=== PATIENT | female | born 1935 | race Caucasian/White ===

== ENCOUNTER 2020-02-18 10:10 | Day surgery (SDC) | payer MEDICARE ==
[2020-02-17 09:10] VITALS: BMI 29.2
[2020-02-18 11:19] VITALS: RESP 16; TEMP 98.4
[2020-02-18] MEDS: LACTATED RINGERS 1,000 ML IV SCH ×2 (11:19→11:31)
[2020-02-18] MEDS ORDERED: PROPOFOL 10 MG/ML 20 ML VIAL IV ONE (11:36)
--- NOTE | 2020-02-18 11:53 | P.PCN ---
Date of Procedure: 02/18/20 Procedure(s) Performed: BRIEF HISTORY: Patient is a 84-year-old pleasant white female scheduled for an elective colonoscopy as a part of evaluation of change in bowel habits with alternating diarrhea constipation for the last several months duration. PROCEDURE PERFORMED: Colonoscopy. PREOPERATIVE DIAGNOSIS: Change in bowel habits. IV sedation per Anesthesia. PROCEDURE: After informed consent was obtained, the patient, was brought into the endoscopy unit. IV sedation was administered by Anesthesia under continuous monitoring. Digital rectal examination was normal. Initially the Olympus CF-160 flexible video colonoscope was then inserted in the rectum, gradually advanced into the right colon without any difficulty. Careful examination was performed. Evidence of ileocolonic anastomosis seen and appeared normal. Mucosa of the ascending colon, transverse colon, descending colon, sigmoid colon, and rectum appeared normal. Evidence of sigmoid resection located at 20 cm from the anal warts anastomosis appeared normal. Retroflexion was performed in the rectum and no lesions were seen. The patient tolerated the procedure well. IMPRESSION: Normal-appearing colon from rectum to right colon with no evidence of colitis or colorectal neoplasia. Normal-appearing colic anastomosis RECOMMENDATIONS: Findings of this examination were discussed with the patient as well as a family.. She was advised to continue with a high-fiber diet and fiber supplements a regular basis. She'll be seen in office in 3-4 weeks
[2020-02-18 12:09] VITALS: BP 156/82; PULSE 78
== END 2020-02-18 12:42 | disposition home or self-care (01) ==
LOC: ORWHC2ENDO 10:10
PROVIDERS: ATTEND Internal Medicine Gastroenterology
DX: Z98.0 Intestinal bypass and anastomosis status (principal); A63.0 Anogenital (venereal) warts; R19.4 Change in bowel habit; E78.5 Hyperlipidemia, unspecified; M19.90 Unspecified osteoarthritis, unspecified site; Z90.49 Acquired absence of other specified parts of digestive tract; Z91.02 Food additives allergy status; Z88.5 Allergy status to narcotic agent
CPT/HCPCS: 45378; J2704

== ENCOUNTER → 2022-03-15 | Outpatient (CLI) | payer MEDICARE ==
--- NOTE | 2022-03-15 11:22 | CT ---
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 Back pain following f all TECHNIQUE: Contiguous axial scanning of the thoracic spine without IV contrast. Coronal and sagittal reconstructions performed. CT DLP: 1044 mGycm Automated exposure control for dose reduction was used. FINDINGS: There are diffuse interstitial changes and underlying emphysematous change in the lungs. Somewhat mor e patchy interstitial change within the right upper lobe. There is a 5 mm anteromedial right upper lo be pulmonary nodule on axial image 31. Numerous parapelvic cysts within the kidneys. Additional lateral right renal cyst measuring 4.3 cm. T iny hiatal hernia. There is an accentuated upper to mid thoracic kyphosis. DISH involving T3-T9 levels. Unable to identify a discrete fracture. There is diffuse osteopenia. Vertebral body heights are prese rved. Degenerative grade 1 anterolisthesis T2-T3. Otherwise, remaining alignment is maintained. Scattered facet arthropathy. On the left, this continues to variable moderate neuroforaminal stenoses in the upper thoracic spine. At T11-T12, there is a right paracentral disc osteophyte complex encroaching onto the ventral thecal sac without significant spinal canal stenosis. IMPRESSION: 1. DISH FROM T3-T9 LEVELS WITH A FIXED, ACCENTUATED THORACIC KYPHOSIS. NO DISCRETE FRACTURE IS IDENTI FIED. IF PERSISTENT CONCERN, CONSIDER MRI WITH THE ADDITION OF SAGITTAL STIR IMAGING. 2. 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 NO OTHER MALALIGNMENT IS SEEN. 3. SCATTERED FACET ARTHROPATHY. VARIABLE MODERATE NEURAL FORAMINAL STENOSES UPPER THORACIC SPINE. 4. INTERSTITIAL LUNG DISEASE AND COPD. SUSPECT SOME UNDERLYING FIBROSIS. MORE PATCHY CHANGES IN THE R IGHT UPPER LOBE. CORRELATE TO EXCLUDE ACUTE INFECTIOUS OR INFLAMMATORY ETIOLOGY.
== END | disposition home or self-care (01) ==
LOC: RADCTMAIN 09:20
PROVIDERS: ATTEND Family Medicine
DX: M51.34 Other intervertebral disc degeneration, thoracic region (principal); M47.814 Spondylosis without myelopathy or radiculopathy, thoracic region; J84.9 Interstitial pulmonary disease, unspecified; J44.9 Chronic obstructive pulmonary disease, unspecified; M99.72 Connective tissue and disc stenosis of intervertebral foramina of thoracic region; M48.04 Spinal stenosis, thoracic region; M43.14 Spondylolisthesis, thoracic region
CPT/HCPCS: 72128

== ENCOUNTER → 2023-01-02 | Outpatient (CLI) | payer MEDICARE ==
--- NOTE | 2023-01-02 21:53 | CA ---
Transthoracic Echo Report Name: Salina Malone Age: 87 Gender: F : 1935 Exam Date: 01/02/2023 09:05 Exam Location: [facility] Ht (in): 63 Wt (lb): 173 Ordering Physician: Jack Good MD Attending/Referring Phys: Agricultural Services Director Sherron Guan [facility] Procedure CPT: Indications: Z01.818 pre op Cardiac Hx: Technical Quality: Technically difficult study Contrast 1: Total Dose (mL): Contrast 2: Total Dose (mL): MEASUREMENTS (Male / Female) Normal Values 2D ECHO LV Diastolic Diameter PLAX 3.9 cm 4.2 - 5.9 / 3.9 - 5.3 cm LV Systolic Diameter PLAX 2.5 cm IVS Diastolic Thickness 1.1 cm 0.6 - 1.0 / 0.6 - 0.9 cm LVPW Diastolic Thickness 1.1 cm 0.6 - 1.0 / 0.6 - 0.9 cm LV Relative Wall Thickness 0.6 LVOT Diameter 2.0 cm LA Volume 29.4 cm??? 18 - 58 / 22 - 52 cm??? LA Volume Index 15.5 cm???/m??? 16 - 28 cm???/m??? Ascending Aorta Diameter 3.7 cm M-MODE Aortic Root Diameter MM 2.7 cm LA Systolic Diameter MM 3.2 cm LA Ao Ratio MM 1.2 AV Cusp Separation MM 1.4 cm DOPPLER AV Peak Velocity 153.9 cm/s AV Peak Gradient 9.5 mmHg AV Mean Velocity 111.6 cm/s AV Mean Gradient 5.5 mmHg AV Velocity Time Integral 30.4 cm LVOT Peak Velocity 102.7 cm/s LVOT Peak Gradient 4.2 mmHg LVOT Velocity Time Integral 23.4 cm LVOT Stroke Volume 71.2 cm??? LVOT Stroke Volume Index 39.1 ml/m??? LVOT Cardiac Index 3191.7 cm???/min???m??? AV Area Cont Eq vti 2.3 cm??? AV Area Cont Eq pk 2.0 cm??? MV Area PHT 3.5 cm??? Mitral E Point Velocity 59.4 cm/s Mitral A Point Velocity 112.2 cm/s Mitral E to A Ratio 0.5 MV Deceleration Time 214.5 ms LV E' Lateral Velocity 5.6 cm/s Mitral E to LV E' Lateral Ratio 10.6 LV E' Septal Velocity 7.2 cm/s Mitral E to LV E' Septal Ratio 8.3 TR Peak Velocity 198.3 cm/s TR Peak Gradient 15.7 mmHg Right Atrial Pressure 3.0 mmHg Pulmonary Artery Systolic Pressu 18.7 mmHg Right Ventricular Systolic Press 18.7 mmHg FINDINGS Left Ventricle Moderate increased left ventricular wall thickness. Left ventricular cavity size normal. Normal left ventricular systolic function with no obvious regional wall motion abnormalities. Left ventricular ejection fraction is estimated at 60-65%. Right Ventricle Right ventricle not well visualized. Right Atrium Right atrium not well visualized. Left Atrium Normal left atrial size. Mitral Valve Mitral valve thickened. Mitral annular calcification. Calcific thickening of posterior mitral valve leaflet. Aortic Valve Trileaflet aortic valve. Aortic valve sclerosis. No aortic regurgitation. Tricuspid Valve Structurally normal tricuspid valve. Trace tricuspid regurgitation. Pulmonic Valve Structurally normal pulmonic valve. Mild pulmonic regurgitation. Pericardium No pericardial effusion. Echo free space anterior to the right ventricle likely represents a fat pad. Aorta Normal size aortic root and upper normal proximal ascending aorta. CONCLUSIONS Technically difficult study. Left ventricular ejection fraction is estimated at 60-65%. Moderate LVH Global longitudinal stain estimated at -13.5% (Normal -20%) Bull's-eye strain pattern, consider infiltrative disease like amyloid evaluation No obvious regional wall motion abnormalities. No significant valvular dysfunction Previewed by: Dr Colt Bliss (Electronically Signed) Final Date: 02 January 2023 21:52
== END | disposition home or self-care (01) ==
LOC: RADECHMAIN 08:54
PROVIDERS: ATTEND Internal Medicine Hematology & Oncology
DX: Z01.818 Encounter for other preprocedural examination (principal); C83.31 Diffuse large B-cell lymphoma, lymph nodes of head, face, and neck; Z71.3 Dietary counseling and surveillance; Z85.3 Personal history of malignant neoplasm of breast
CPT/HCPCS: 93306

== ENCOUNTER 2023-01-10 10:26 | Day surgery (SDC) | payer MEDICARE ==
[2023-01-09 11:05] VITALS: BMI 30.2
[~2023-01-10 10:26] MED LIST: ACETAMINOPHEN TAB 500 MG TAB PO PRN; HEPARIN SODIUM,PORCINE/PF 5,000 UNIT/0.5 ML SYRINGE SQ PRN; LACTATED RINGERS 1,000 ML IV SCH; LIDOCAINE 1% (10MG/ML) FOR IV START INTRADERMA PRN; ONDANSETRON 4 MG/2 ML VIAL IVP ONE; Pre Op ABX Message 1 EACH MISC MISCELLANE ONE; fentaNYL (PF) 50 MCG/ML 2 ML AMP IV PRN
--- NOTE | 2023-01-10 11:37 | P.GSHP ---
History of Present Illness H&P Date: 01/10/23 Chief Complaint: Lymphoma This 87-year-old female who was previously diagnosed lymphoma. Patient presents today for Port-A-Cath placement. Past Medical History Past Medical History: Cancer, Hyperlipidemia, Osteoarthritis (OA) Additional Past Medical History / Comment(s): lymphoma dx Nov 2022, hx BREAST CA. >40 yrs. ago, DIVERTICULITIS/POLYPS. TAKES NOT MEDS FOR HYPERLIPIDS. History of Any Multi-Drug Resistant Organisms: None Reported Past Surgical History: Bowel Resection, Hysterectomy, Tonsillectomy Additional Past Surgical History / Comment(s): BOW. RESECTION (09/24/2013) IN [place]. BILATERAL MASTECTOMY (1978). [place]. CATARACTS,breast bx,left rib removed Past Anesthesia/Blood Transfusion Reactions: No Reported Reaction Additional Past Anesthesia/Blood Transfusion Reaction / Comment(s): nightmares coming out of anesthesia Smoking Status: Never smoker - Past Family History Father Additional Family Medical History / Comment(s): AORTIC ANEURYSM. Mother Family Medical History: Cancer, Myocardial Infarction (MT) Additional Family Medical History / Comment(s): COLON. Sister(s) Family Medical History: Cancer Additional Family Medical History / Comment(s): BREAST. Medications and Allergies Home Medications Medication Instructions Recorded Confirmed Type No Known Home Medications 01/09/23 01/09/23 History Allergies Allergy/AdvReac Type Severity Reaction Status Date / Time adhesive Allergy Rash/Hives Verified 01/10/23 11:05 codeine Allergy Hallucinati Verified 01/10/23 11:05 ons monosodium glutamate Allergy Diarrhea Verified 01/10/23 11:05 Surgical - Exam Vital Signs Temp Pulse Resp BP Pulse Ox 97.9 F 94 20 214/97 96 01/10/23 10:52 01/10/23 10:52 01/10/23 10:52 01/10/23 10:52 01/10/23 10:52 - General well developed, well nourished, no distress - Eyes PERRL - ENT normal pinna - Neck no masses - Respiratory normal expansion - Cardiovascular Rhythm: regular - Abdomen Abdomen: soft, non tender Assessment and Plan Assessment: History of lymphoma. We'll perform Port-A-Cath placement.
[2023-01-10] MEDS ORDERED: ceFAZolin 1,000 MG VIAL ONE (11:57)
[2023-01-10] MEDS ORDERED: LIDOCAINE 1% INJ 10MG/ML (20 ML MDV) ONE (11:57)
[2023-01-10] MEDS ORDERED: PROPOFOL 10 MG/ML 20 ML VIAL IV ONE (11:57)
[2023-01-10] MEDS ORDERED: LABETALOL 5 MG/ML VIAL MDV ONE (11:57)
[2023-01-10] MEDS ORDERED: PHENYLEPHRINE-0.9% NACL SYG 1,000 MCG/10 ML SYRINGE ONE (11:57)
[2023-01-10] MEDS ORDERED: fentaNYL (PF) 50 MCG/ML 2 ML AMP ONE (11:57)
[2023-01-10] MEDS ORDERED: SODIUM CHLORIDE 0.9% 100 ML BAG ONE (11:57)
[2023-01-10] MEDS ORDERED: SODIUM CHLORIDE 0.9% 50 ML with ceFAZolin 2 GM IV ONE ×2 (12:20)
[2023-01-10] MEDS ORDERED: HEPARIN SODIUM,PORCINE 100 UNIT/ML 5 ML VIAL IV ONE (12:28)
[2023-01-10] MEDS ORDERED: LIDOCAINE 0.5%-EPI 1:200,000 50 ML VIAL SQ ONE ×2 (12:29)
--- NOTE | 2023-01-10 12:40 | P.OP ---
Date of Procedure: 01/10/23 Preoperative Diagnosis: Lymphoma Postoperative Diagnosis: Lymphoma Procedure(s) Performed: Right subclavian Port-A-Cath Anesthesia: MATILDE Surgeon: Giorgio Arias Pathology: none sent Condition: stable Disposition: PACU Description of Procedure: The patient was placed on the operating table in the supine position. The patient received IV sedation. The patient's chest was prepped and draped in the usual sterile fashion. A roll had been placed between the shoulder blades in a longitudinal fashion. After prepping and draping the skin was anesthetized 1% local Xylocaine. And then using the Seldinger technique the subclavian vein was cannulated. A wire was placed into the vein and fluoroscopy position the wire at the atrial caval junction. Next the dilator sheath was placed over top the wire and the wire was withdrawn. The catheter was positioned at the atriocaval position. The catheter was placed through the sheath after the dilator was withdrawn. The sheath was then withdrawn. Position of the catheter was confirmed with fluoroscopy. The Port-A-Cath was connected to the catheter. The Port-A-Cath was flushed with saline and then heparinized saline. The skin was closed interrupted 3-0 Monocryl suture. Dermabond was applied. Patient tolerated procedure well and was sent to recovery room stable condition.
[2023-01-10 13:00] VITALS: TEMP 97
[2023-01-10] MEDS ORDERED: LABETALOL SYRINGE 5 MG/ML (4 ML SYR) IVP ONE (13:08)
--- NOTE | 2023-01-10 13:20 | XR ---
EXAMINATION TYPE: XR chest 1V portable DATE OF EXAM: 01/10/2023 COMPARISON: NONE HISTORY: Port-A-Cath TECHNIQUE: Single frontal view of the chest is obtained. FINDINGS: There is no focal air space opacity, pleural effusion, or pneumothorax seen. The cardiac silhouette size is within normal limits. The osseous structures are intact. Port-A-Cath is seen wit h tip overlying the SVC. Diffuse osteopenia. IMPRESSION: 1. Port-A-Cath in good position with no sizable pneumothorax.
--- NOTE | 2023-01-10 13:22 | FL ---
EXAMINATION TYPE: FL guided central line placemt HISTORY: Fluoroscopy time Impression: 1. Fluoroscopy support provided to the referring physician. DAP as [phone].
[2023-01-10] MEDS ORDERED: hydrALAZINE HCL 20 MG/ML 1 ML VIAL IVP ONE (13:37)
[2023-01-10 14:27] VITALS: BP 130/61; PULSE 93; RESP 16
== END 2023-01-10 14:50 | disposition home or self-care (01) ==
LOC: OR 10:26
PROVIDERS: ATTEND Surgery
DX: C85.90 Non-Hodgkin lymphoma, unspecified, unspecified site (principal); E78.5 Hyperlipidemia, unspecified; M19.90 Unspecified osteoarthritis, unspecified site; Z90.13 Acquired absence of bilateral breasts and nipples; Z85.3 Personal history of malignant neoplasm of breast; Z82.49 Family history of ischemic heart disease and other diseases of the circulatory system; Z45.2 Encounter for adjustment and management of vascular access device; Z88.5 Allergy status to narcotic agent; Z91.048 Other nonmedicinal substance allergy status
CPT/HCPCS: 36561; 77001; 71045; C1788; J0360; J1642; J0690 ×2; J2405; J2001; J3010; J2704; J1644; J2371; J1920 ×2

== ENCOUNTER 2023-02-11 14:27 | Observation (INO) | payer MEDICARE ==
[2023-02-11] MEDS ORDERED: ACETAMINOPHEN TAB 500 MG TAB PO STA (15:02)
[2023-02-11] MEDS ORDERED: SODIUM CHLORIDE 0.9% 1,000 ML IV STA ×2 (15:02→20:17)
--- NOTE | 2023-02-11 15:31 | XR ---
EXAMINATION TYPE: XR chest 2V DATE OF EXAM: 02/11/2023 3:23 PM CLINICAL INDICATION:Female, 87 years old with history of Weakness; [facility] COMPARISON: Chest radiograph 01/10/2023. TECHNIQUE: XR chest 2V Frontal and lateral views of the chest. FINDINGS: Lungs/Pleura: There is no evidence of pleural effusion, focal consolidation, or pneumothorax. Pulmonary vascularity: Stable mild pulmonary vascular congestion. Heart/mediastinum: Cardiomediastinal silhouette is unremarkable. Musculoskeletal: No acute osseous pathology. Right-sided Port-A-Cath in stable position. IMPRESSION: No significant interval change or evidence to suggest acute cardiac pulmonary process.
--- NOTE | 2023-02-11 15:54 | CT ---
EXAMINATION TYPE: CT brain wo con CT DLP: 1129.4 mGycm, Automated exposure control for dose reduction was used. DATE OF EXAM: 02/11/2023 3:42 PM COMPARISON: None. CLINICAL INDICATION:Female, 87 years old with history of weakness. TECHNIQUE: Brain: Axial CT images of the brain were obtained with coronal and sagittal reformats created and rev iewed. Contrast used: None. Oral contrast used: None. FINDINGS: Brain: Extra-axial spaces: No abnormal extra-axial fluid collections. Ventricular system: Within normal limits Cerebral parenchyma: No acute intraparenchymal hemorrhage or mass effect. The modi-white junction is well differentiated. Scattered hypoattenuating areas are seen within the white matter. Cerebellum: Unremarkable. Mass effect: No evidence of midline shift. Intracranial vasculature: Atherosclerotic calcifications of the intracranial vessels. Soft tissues: Normal. Calvarium/osseous structures: No depressed skull fracture. Paranasal sinuses and mastoid air cells: Moderate mucosal thickening on the left maxillary sinus and ethmoid air cells. Visualized orbits: Bilateral aphakia IMPRESSION: 1. No acute intracranial process. 2. Moderate volume chronic microvascular disease. 3. Paranasal sinus disease.
[2023-02-11 17:35] LABS: Mucus,Urine Rare /hpf; RBC,Urine <1 /hpf (0-5); Squamous Epithelial Cell,Urine 2 /hpf (0-4); WBC,Urine 7 /hpf (0-5)
[2023-02-11 17:43] LABS: Appearance,Urine Slightly Cloudy (Clear); Bilirubin,Urine Negative (Negative); Blood,Urine Negative (Negative); Color,Urine Yellow; Glucose,Urine (UA) Negative (Negative); Ketones,Urine 3+ (Negative); Leukocyte Esterase,Urine Moderate (Negative); Nitrite,Urine Negative (Negative); PH, Urine 5.5 (5.0-8.0); Protein,Urine Trace (Negative); Specific Gravity,Urine 1.025 (1.001-1.035); Urobilinogen,Urine <2.0 mg/dL (<2.0)
[2023-02-11 17:54] LABS: Glucose,Whole Blood 111 mg/dL (70-110)
[2023-02-11 18:41] LABS: Partial Thromboplastin Time 25.2 sec (22.0-30.0); Prothrombin Time 11.4 sec (10.0-12.5)
[2023-02-11 18:49] LABS: Basophils # (A) 0.1 k/uL (0-0.2); Basophils % (A) 1 %; Eosinophils % (A) 0 %; HCT 36.9 % (34.0-46.0); Lymphocytes # (A) 0.4 k/uL (1.0-4.8); Lymphocytes % (A) 4 %; MCH 31.3 pg (25.0-35.0); MCHC 33.9 g/dL (31.0-37.0); MCV 92.4 fL (80.0-100.0); Mean Platelet Volume 8.9; Monocytes # (A) 0.7 k/uL (0-1.0); Monocytes % (A) 6 %; Neutrophils # (A) 10.6 k/uL (1.3-7.7); Neutrophils % (A) 89 %; Platelet Count 188 k/uL (150-450); RBC 3.99 m/uL (3.80-5.40); RDW 14.7 % (11.5-15.5); WBC 11.9 k/uL (3.8-10.6)
[2023-02-11 19:11] LABS: HGB 12.5 gm/dL (11.4-16.0)
[2023-02-11 19:34] LABS: ALT 33 U/L (4-34); AST 27 U/L (14-36); African American GFR (CKD) >90 (>60 ml/min/1.73 sqM); Albumin 3.4 g/dL (3.5-5.0); Alkaline Phosphatase 75 U/L (38-126); Anion Gap 13 mmol/L; Blood Urea Nitrogen 14 mg/dL (7-17); Calcium 8.3 mg/dL (8.4-10.2); Carbon Dioxide 22 mmol/L (22-30); Chloride 101 mmol/L (98-107); Glucose 95 mg/dL (74-99); Magnesium 1.6 mg/dL (1.6-2.3); Non-African American GFR(CKD) 85 (>60 ml/min/1.73 sqM); Potassium 3.6 mmol/L (3.5-5.1); Sodium 136 mmol/L (137-145); Total Bilirubin 0.6 mg/dL (0.2-1.3)
--- NOTE | 2023-02-11 20:03 | ED ---
General Adult HPI - General Chief complaint: Weakness Stated complaint: Weakness Time Seen by Provider: 02/11/23 14:30 Source: patient, RN notes reviewed, old records reviewed Mode of arrival: EMS - History of Present Illness Initial comments: Patient is an 87-year-old female presents emergency department for weakness. Patient states that over the last 2-3 days she has felt more weak. Lives by herself. States she feels like her legs give out from under her. Denies any known sick contacts. Denies any chest pain, shortness of breath, abdominal pain, nausea, vomiting. Patient did receive chemotherapy for lymphoma, last dose 3 weeks ago. Presents for further evaluation at this time. - Related Data Home Medications Medication Instructions Recorded Confirmed Multivit-Min/FA/Lycopen/Lutein 1 tab PO DAILY 02/11/23 02/11/23 [Centrum Silver Tablet] Allergies Allergy/AdvReac Type Severity Reaction Status Date / Time adhesive AdvReac Rash/Hives Verified 02/11/23 16:47 codeine AdvReac Hallucinati Verified 02/11/23 16:47 ons monosodium glutamate AdvReac Diarrhea Verified 02/11/23 16:47 Review of Systems ROS Statement: Those systems with pertinent positive or pertinent negative responses have been documented in the HPI. Review of Systems: CONST: Denies fever EYES: Denies blurry vision ENT: Denies nasal congestion C/V: Denies Chest pain RESP: Denies shortness of breath GI: Denies abdominal pain : Denies dysuria SKIN: Denies rash. MSK: Denies joint pain. NEURO: Denies headache ROS Other: All systems not noted in ROS Statement are negative. Past Medical History Past Medical History: Cancer, Hyperlipidemia, Osteoarthritis (OA) Additional Past Medical History / Comment(s): lymphoma dx Nov 2022, hx BREAST CA. >40 yrs. ago, DIVERTICULITIS/POLYPS. TAKES NOT MEDS FOR HYPERLIPIDS. History of Any Multi-Drug Resistant Organisms: None Reported Past Surgical History: Bowel Resection, Hysterectomy, Tonsillectomy Additional Past Surgical History / Comment(s): BOW. RESECTION (09/24/2013) IN [place]. BILATERAL MASTECTOMY (1978). SHELBI. CATARACTS,breast bx,left rib removed Past Anesthesia/Blood Transfusion Reactions: No Reported Reaction Additional Past Anesthesia/Blood Transfusion Reaction / Comment(s): nightmares coming out of anesthesia Past Psychological History: Anxiety Smoking Status: Never smoker - Past Family History Father Additional Family Medical History / Comment(s): AORTIC ANEURYSM. Mother Family Medical History: Cancer, Myocardial Infarction ([place]) Additional Family Medical History / Comment(s): COLON. Sister(s) Family Medical History: Cancer Additional Family Medical History / Comment(s): BREAST. General Exam - General Exam Comments Initial Comments: General: Appears in no acute distress. Febrile. HEAD: Normal with no signs of head trauma. EYES: PERRLA, EOMI, conjunctiva normal, no discharge. ENT: Hearing grossly intact, normal oropharynx. Dry mucous membranes. RESPIRATORY: Clear breath sounds bilaterally. No wheezes, rales, or rhonchi. C/V: Regular rate and rhythm. S1 and S2 auscultated, no edema, peripheral pulses 2+ and intact throughout ABD: Abd is soft, nontender, nondistended EXT: Normal range of motion, no obvious deformity SKIN: No rashes or lesions observed on exposed skin. Patient does have a chest port. NEURO: Alert and oriented 4. Mild conversational confusion. No other focal deficits appreciated. Course Vital Signs 02/11/23 02/11/23 02/11/23 14:36 16:32 18:07 Temperature 101.6 F H 101.4 F H 99.1 F Pulse Rate 55 L 95 Respiratory 18 18 Rate Blood Pressure 166/66 145/70 O2 Sat by Pulse 92 L 94 L Oximetry Medical Decision Making - Medical Decision Making Was pt. sent in by a medical professional or institution (, PA, CITY EDITOR, urgent care, hospital, or usp...) When possible be specific @ -No Did you speak to anyone other than the patient for history (EMS, parent, family, police, friend...)? What history was obtained from this source @ -No Did you review nursing and triage notes (agree or disagree)? Why? @ -I reviewed and agree with nursing and triage notes Were old charts reviewed (outside hosp., previous admission, EMS record, old EKG, old radiological studies, urgent care reports/EKG's, usp records)? Report findings @ -Old charts reviewed Differential Diagnosis (chest pain, altered mental status, abdominal pain women, abdominal pain men, vaginal bleeding, weakness, fever, dyspnea, syncope, headache, dizziness, GI bleed, back pain, seizure, CVA, palpatations, mental health, musculoskeletal)? @ -Differential Weakness: Hypoglycemia, shock, sepsis, hyponatremia, anemia, infection, ND, ETOH, adverse medicine reaction, overdose, stroke, this is not meant to be an all-inclusive list. EKG interpreted by me (3pts min.). @ -As above X-rays interpreted by me (1pt min.). @ -Chest X Ray reveals no obvious acute cardiopulmonary process. CT interpreted by me (1pt min.). @ -CT brain reveals no obvious acute intracranial process or injury. U/S interpreted by me (1pt. min.). @ -None done What testing was considered but not performed or refused? (CT, X-rays, U/S, labs)? Why? @ -None What meds were considered but not given or refused? Why? @ -None Did you discuss the management of the patient with other professionals (pro fessionals i.e. , PA, CITY EDITOR, lab, RT, psych nurse, social worker masters, numerical tool programmer, teacher, sustainability officer, employment evaluator/case manager)? Give summary @ -Discuss the case with Dr. Negrete [facility] who accepted the patient. Was smoking cessation discussed for >3mins.? @ -No Was critical care preformed (if so, how long)? @ -Yes, 37 minutes. Were there social determinants of health that impacted care today? How? (Homelessness, low income, unemployed, alcoholism, drug addiction, transportation, low edu. Level, literacy, decrease access to med. care, retirement, rehab)? @ -No Was there de-escalation of care discussed even if they declined (Discuss DNR or withdrawal of care, Hospice)? DNR status @ -No What co-morbidities impacted this encounter? (DM, HTN, Smoking, COPD, CAD, Cancer, CVA, ARF, Chemo, Hep., AIDS, mental health diagnosis, sleep apnea, morbid obesity)? @ -None Was patient admitted / discharged? Hospital course, mention meds given and route, prescriptions, significant lab abnormalities, going to OR and other pertinent info. @ -Based on the patient's presentation and physical exam, presents for weakness. We will obtain weakness workup. Does have conversational confusion occasionally. With her weakness in her lower extremities despite her saying she did not fall or hit her head would like to scan her brain as well as obtaining generalized workup. She is febrile, likely infectious is the cause of his confusion. We will treat the fever and reevaluate. Patiently given a 1 L fluid bolus. EKG showed no signs of acute ischemia. Imaging unremarkable. There was a long delay in obtaining results of laboratory studies. They did initially return with what we believe to be incorrect values. Lab also called and questioned the results. We therefore repeated labs with a butterfly rather than accessing her port and labs eventually returned within acceptable limits except for slightly elevated white blood cell count of 11. Lactic acid within normal limits. Covid is positive. Occult blood was obtained and was negative. The study was obtained in the presence of a female staff member. No gross blood on exam. This is originally obtain because the incorrect lavatory studies showed a hemoglobin of 5 however on repeat, the accurate lab studies are within acceptable limits. Patient has no symptoms of bleeding either. Ketones are 3+ in the urine. On reevaluation, patient is feeling improved. Mental status is at baseline. I discussed her workup and as she lives alone, is elderly, and is feeling more weak I did recommend admission for further monitoring as well as IV hydration. She was in agreement with this plan. I spoke with the attending physician, Dr. Cole who accepted the patient. Undiagnosed new problem with uncertain prognosis? @ -No Drug Therapy requiring intensive monitoring for toxicity (Heparin, Nitro, Insulin, Cardizem)? @ -No Were any procedures done? @ -No Diagnosis/symptom? @ -COVID-19 infection, weakness, dehydration Acute, or Chronic, or Acute on Chronic? @ -Acute Uncomplicated (without systemic symptoms) or Complicated (systemic symptoms)? @ -Complicated Side effects of treatment? @ -No Exacerbation, Progression, or Severe Exacerbation? @ -No Poses a threat to life or bodily function? How? (Chest pain, USA, ND, pneumonia, PE, COPD, DKA, ARF, appy, cholecystitis, CVA, Diverticulitis, Homicidal, Suicidal, threat to staff... and all critical care pts) @ -Potentially, yes - Lab Data Result diagrams: 02/11/23 18:02 02/11/23 18:02 Lab Results 02/11/23 02/11/23 02/11/23 Range/Units 15:07 15:07 15:07 WBC (3.8-10.6) k/uL RBC (3.80-5.40) m/uL Hgb (11.4-16.0) gm/dL Hct (34.0-46.0) % MCV (80.0-100.0) fL MCH (25.0-35.0) pg MCHC (31.0-37.0) g/dL RDW (11.5-15.5) % Plt Count (150-450) k/uL MPV Neutrophils % Not Reportable Lymphocytes % Not Reportable Monocytes % Not Reportable Eosinophils % Not Reportable Basophils % Not Reportable Neutrophils # Not Reportable Lymphocytes # Not Reportable Monocytes # Not Reportable Eosinophils # Not Reportable Basophils # Not Reportable Hypochromasia PT (10.0-12.5) sec INR (<1.2) APTT Not Reportable Sodium (137-145) mmol/L Potassium (3.5-5.1) mmol/L Chloride (98-107) mmol/L Carbon Dioxide (22-30) mmol/L Anion Gap mmol/L BUN (7-17) mg/dL Creatinine (0.52-1.04) mg/dL Est GFR (CKD-EPI)AfAm (>60 ml/min/1.73 sqM) Est GFR (CKD-EPI)NonAf (>60 ml/min/1.73 sqM) Glucose (74-99) mg/dL POC Glucose (mg/dL) (70-110) mg/dL POC Glu Clothes Drier Assembler ID Plasma Lactic Acid Daryl <0.5 L (0.7-2.0) mmol/L Calcium (8.4-10.2) mg/dL Magnesium (1.6-2.3) mg/dL Total Bilirubin (0.2-1.3) mg/dL AST (14-36) U/L ALT (4-34) U/L Alkaline Phosphatase (38-126) U/L Total Protein (6.3-8.2) g/dL Albumin (3.5-5.0) g/dL Urine Color Urine Appearance (Clear) Urine pH (5.0-8.0) Ur Specific [place] (1.001-1.035) Urine Protein (Negative) Urine Glucose (UA) (Negative) Urine Ketones (Negative) Urine Blood (Negative) Urine Nitrite (Negative) Urine Bilirubin (Negative) Urine Urobilinogen (<2.0) mg/dL Ur Leukocyte Esterase (Negative) Urine RBC (0-5) /hpf Urine WBC (0-5) /hpf Ur Squamous Epith Cells (0-4) /hpf Urine Mucus (None) /hpf Stool Occult Blood (Negative) Influenza Type A (PCR) (Not Detectd) Influenza Type B (PCR) (Not Detectd) RSV (PCR) (Not Detectd) SARS-CoV-2 (PCR) (Not Detectd) 02/11/23 02/11/23 02/11/23 Range/Units 15:07 15:07 17:32 WBC (3.8-10.6) k/uL RBC (3.80-5.40) m/uL Hgb (11.4-16.0) gm/dL Hct (34.0-46.0) % MCV (80.0-100.0) fL MCH (25.0-35.0) pg MCHC (31.0-37.0) g/dL RDW (11.5-15.5) % Plt Count (150-450) k/uL MPV Neutrophils % Lymphocytes % Monocytes % Eosinophils % Basophils % Neutrophils # Lymphocytes # Monocytes # Eosinophils # Basophils # Hypochromasia PT (10.0-12.5) sec INR (<1.2) APTT Sodium (137-145) mmol/L Potassium (3.5-5.1) mmol/L Chloride (98-107) mmol/L Carbon Dioxide (22-30) mmol/L Anion Gap mmol/L BUN (7-17) mg/dL Creatinine (0.52-1.04) mg/dL Est GFR (CKD-EPI)AfAm (>60 ml/min/1.73 sqM) Est GFR (CKD-EPI)NonAf (>60 ml/min/1.73 sqM) Glucose (74-99) mg/dL POC Glucose (mg/dL) (70-110) mg/dL POC Glu Clothes Drier Assembler ID Plasma Lactic Acid Daryl (0.7-2.0) mmol/L Calcium (8.4-10.2) mg/dL Magnesium (1.6-2.3) mg/dL Total Bilirubin (0.2-1.3) mg/dL AST (14-36) U/L ALT (4-34) U/L Alkaline Phosphatase (38-126) U/L Total Protein (6.3-8.2) g/dL Albumin (3.5-5.0) g/dL Urine Color Yellow Urine Appearance Slightly Cloudy H (Clear) Urine pH 5.5 (5.0-8.0) Ur Specific [place] 1.025 (1.001-1.035) Urine Protein Trace H (Negative) Urine Glucose (UA) Negative (Negative) Urine Ketones 3+ (Negative) Urine Blood Negative (Negative) Urine Nitrite Negative (Negative) Urine Bilirubin Negative (Negative) Urine Urobilinogen <2.0 (<2.0) mg/dL Ur Leukocyte Esterase Moderate (Negative) Urine RBC <1 (0-5) /hpf Urine WBC 7 H (0-5) /hpf Ur Squamous Epith Cells 2 (0-4) /hpf Urine Mucus Rare H (None) /hpf Stool Occult Blood Negative (Negative) Influenza Type A (PCR) Not Detected (Not Detectd) Influenza Type B (PCR) Not Detected (Not Detectd) RSV (PCR) Not Detected (Not Detectd) SARS-CoV-2 (PCR) Detected A (Not Detectd) 02/11/23 02/11/23 02/11/23 Range/Units 17:52 18:02 18:02 WBC 11.9 H (3.8-10.6) k/uL RBC 3.99 (3.80-5.40) m/uL Hgb 12.5 (11.4-16.0) gm/dL Hct 36.9 (34.0-46.0) % MCV 92.4 (80.0-100.0) fL MCH 31.3 (25.0-35.0) pg MCHC 33.9 (31.0-37.0) g/dL RDW 14.7 (11.5-15.5) % Plt Count 188 (150-450) k/uL MPV 8.9 Neutrophils % 89 Lymphocytes % 4 Monocytes % 6 Eosinophils % 0 Basophils % 1 Neutrophils # 10.6 H Lymphocytes # 0.4 L Monocytes # 0.7 Eosinophils # 0.0 Basophils # 0.1 Hypochromasia PT 11.4 (10.0-12.5) sec INR 1.0 (<1.2) APTT 25.2 Sodium (137-145) mmol/L Potassium (3.5-5.1) mmol/L Chloride (98-107) mmol/L Carbon Dioxide (22-30) mmol/L Anion Gap mmol/L BUN (7-17) mg/dL Creatinine (0.52-1.04) mg/dL Est GFR (CKD-EPI)AfAm (>60 ml/min/1.73 sqM) Est GFR (CKD-EPI)NonAf (>60 ml/min/1.73 sqM) Glucose (74-99) mg/dL POC Glucose (mg/dL) 111 H (70-110) mg/dL POC Glu Clothes Drier Assembler ID [place] Plasma Lactic Acid Daryl (0.7-2.0) mmol/L Calcium (8.4-10.2) mg/dL Magnesium (1.6-2.3) mg/dL Total Bilirubin (0.2-1.3) mg/dL AST (14-36) U/L ALT (4-34) U/L Alkaline Phosphatase (38-126) U/L Total Protein (6.3-8.2) g/dL Albumin (3.5-5.0) g/dL Urine Color Urine Appearance (Clear) Urine pH (5.0-8.0) Ur Specific [place] (1.001-1.035) Urine Protein (Negative) Urine Glucose (UA) (Negative) Urine Ketones (Negative) Urine Blood (Negative) Urine Nitrite (Negative) Urine Bilirubin (Negative) Urine Urobilinogen (<2.0) mg/dL Ur Leukocyte Esterase (Negative) Urine RBC (0-5) /hpf Urine WBC (0-5) /hpf Ur Squamous Epith Cells (0-4) /hpf Urine Mucus (None) /hpf Stool Occult Blood (Negative) Influenza Type A (PCR) (Not Detectd) Influenza Type B (PCR) (Not Detectd) RSV (PCR) (Not Detectd) SARS-CoV-2 (PCR) (Not Detectd) 02/11/23 02/11/23 Range/Units 18:02 18:02 WBC (3.8-10.6) k/uL RBC (3.80-5.40) m/uL Hgb (11.4-16.0) gm/dL Hct (34.0-46.0) % MCV (80.0-100.0) fL MCH (25.0-35.0) pg MCHC (31.0-37.0) g/dL RDW (11.5-15.5) % Plt Count (150-450) k/uL MPV Neutrophils % Lymphocytes % Monocytes % Eosinophils % Basophils % Neutrophils # Lymphocytes # Monocytes # Eosinophils # Basophils # Hypochromasia PT (10.0-12.5) sec INR (<1.2) APTT Sodium 136 L (137-145) mmol/L Potassium 3.6 (3.5-5.1) mmol/L Chloride 101 (98-107) mmol/L Carbon Dioxide 22 (22-30) mmol/L Anion Gap 13 mmol/L BUN 14 (7-17) mg/dL Creatinine 0.57 (0.52-1.04) mg/dL Est GFR (CKD-EPI)AfAm >90 (>60 ml/min/1.73 sqM) Est GFR (CKD-EPI)NonAf 85 (>60 ml/min/1.73 sqM) Glucose 95 (74-99) mg/dL POC Glucose (mg/dL) (70-110) mg/dL POC Glu Clothes Drier Assembler ID Plasma Lactic Acid Daryl 0.8 (0.7-2.0) mmol/L Calcium 8.3 L (8.4-10.2) mg/dL Magnesium 1.6 (1.6-2.3) mg/dL Total Bilirubin 0.6 (0.2-1.3) mg/dL AST 27 (14-36) U/L ALT 33 (4-34) U/L Alkaline Phosphatase 75 (38-126) U/L Total Protein 6.0 L (6.3-8.2) g/dL Albumin 3.4 L (3.5-5.0) g/dL Urine Color Urine Appearance (Clear) Urine pH (5.0-8.0) Ur Specific [place] (1.001-1.035) Urine Protein (Negative) Urine Glucose (UA) (Negative) Urine Ketones (Negative) Urine Blood (Negative) Urine Nitrite (Negative) Urine Bilirubin (Negative) Urine Urobilinogen (<2.0) mg/dL Ur Leukocyte Esterase (Negative) Urine RBC (0-5) /hpf Urine WBC (0-5) /hpf Ur Squamous Epith Cells (0-4) /hpf Urine Mucus (None) /hpf Stool Occult Blood (Negative) Influenza Type A (PCR) (Not Detectd) Influenza Type B (PCR) (Not Detectd) RSV (PCR) (Not Detectd) SARS-CoV-2 (PCR) (Not Detectd) - EKG Data -: EKG Interpreted by Me EKG Comments: 12-lead Electrocardiogram Interpretation Note EKG was reviewed and interpreted by myself. 12-lead ECG performed at 1454 is interpreted by me as revealing sinus tachycardia with PACs present at a rate of 103 beats per minute. Mccormick is normal. OR intervals 118 ms, QRS duration is 88 ms, QTc is 410 ms.. There were no ST or T wave abnormalities to suggest myocardial ischemia or injury. R wave progression across the precordium was delayed. By my interpretation this EKG is non-diagnostic for acute ischemia. Critical Care Time Critical Care Time: Yes Total Critical Care Time: 37 Disposition Clinical Impression: Weakness, Dehydration, COVID-19 virus infection Disposition: ADMITTED IP TO THIS HOSP Condition: Stable Time of Disposition: 19:48
[2023-02-11] MEDS ORDERED: NALOXONE 0.4 MG/ML 1 ML VIAL IV PRN (20:17)
[2023-02-11] MEDS ORDERED: ONDANSETRON 4 MG/2 ML VIAL IVP PRN (20:17)
[2023-02-11] MEDS ORDERED: ACETAMINOPHEN TAB 325 MG TAB PO PRN (20:17)
--- NOTE | 2023-02-12 02:36 | P.HPIM ---
History of Present Illness H&P Date: 02/11/23 Patient is a 87-year-old female with a PMH of lymphoma (diagnosed November 2022) who presents to the emergency room with complaints of generalized weakness and fever. Patient is following with Dr. Soto and reports having undergone a single chemotherapy treatment 3 weeks ago to which she reacted really poorly. She reports planning on quitting all further chemotherapy treatments. Reports that over the past 2-3 days, she has been getting increasingly weak throughout, unable to walk, and had occasional fevers. Denies chest pain, shortness of breath, cough. Also denies nausea, vomiting, abdominal pain, diarrhea. In the emergency room a CT brain revealed no acute abnormalities with a chest x- ray also unremarkable. EKG revealed sinus tachycardia at [address] segment depression diffusely with no other ST/T-wave changes noted as reviewed by me. Laboratory evaluation was remarkable for leukocytosis of 11.9, COVID PCR positive, with UA showing 3+ ketones. The patient had a T-max of 101.6F in the emergency room with SpO2 97% on room air. ED documentation reviewed and case discussed with ED provider. Review of systems: Pertinent positives and negatives as discussed in HPI, a complete review of systems was performed and all other systems are negative. Physical examination: Vital signs reviewed General: non toxic, no distress, appears at stated age, normal weight Derm: no unusual rashes/lesions, warm Head: atraumatic, normocephalic, symmetric Eyes: EOMI, no lid lag, anicteric sclera, pupils equal round reactive to light ENT: Nose and ears atraumatic Neck: No cervical lymphadenopathy, trachea midline, supple Mouth: no lip lesion, mucus membranes moist Cardiovascular: S1S2 reg, no murmur, positive dorsalis pedis pulse bilateral, no edema, right chest Port noted with no surrounding abnormalities Lungs: CTA bilateral, no rhonchi, no rales, no accessory muscle use Abdominal: soft, nontender to palpation, no guarding Ext: muscle strength 4 out of 5 in all 4 extremities grossly, no gross muscle atrophy, no contractures, Neuro: CN II-XI grossly intact, no gross focal neuro deficits Psych: Alert, oriented, appropriate affect Assessment: COVID-19 infection, not requiring supplemental oxygen Recently diagnosed lymphoma status post single chemotherapy treatment Imaging: In the emergency room a CT brain revealed no acute abnormalities with a chest x- ray also unremarkable. EKG revealed sinus tachycardia at [address] segment depression diffusely with no other ST/T-wave changes noted as reviewed by me. Data Review: Laboratory evaluation was remarkable for leukocytosis of 11.9, COVID PCR positive, with UA showing 3+ ketones. The patient had a T-max of 101.6F in the emergency room with SpO2 97% on room air. Plan: Continue with IV hydration with normal saline 100 mL/h PT consult Oncology consulted DVT prophylaxis: Lovenox subcu The patient is admitted with an anticipated less than 2 midnight stay for evaluation of COVID CODE STATUS: Full Code Discussed with: Patient Anticipated discharge place: Home Past Medical History Past Medical History: Cancer, Hyperlipidemia, Osteoarthritis (OA) Additional Past Medical History / Comment(s): lymphoma dx Nov 2022, hx BREAST CA. >40 yrs. ago, DIVERTICULITIS/POLYPS. TAKES NOT MEDS FOR HYPERLIPIDS. History of Any Multi-Drug Resistant Organisms: None Reported Past Surgical History: Bowel Resection, Hysterectomy, Tonsillectomy Additional Past Surgical History / Comment(s): BOW. RESECTION (09/24/2013) [facility]. BILATERAL MASTECTOMY (1978). [place]. CATARACTS,breast bx,left rib removed Past Anesthesia/Blood Transfusion Reactions: No Reported Reaction Additional Past Anesthesia/Blood Transfusion Reaction / Comment(s): nightmares coming out of anesthesia Past Psychological History: Anxiety Smoking Status: Never smoker - Past Family History Father Additional Family Medical History / Comment(s): AORTIC ANEURYSM. Mother Family Medical History: Cancer, Myocardial Infarction ([place]) Additional Family Medical History / Comment(s): COLON. Sister(s) Family Medical History: Cancer Additional Family Medical History / Comment(s): BREAST. Medications and Allergies Home Medications Medication Instructions Recorded Confirmed Type Multivit-Min/FA/Lycopen/Lutein 1 tab PO DAILY 02/11/23 02/11/23 History [Centrum Silver Tablet] Allergies Allergy/AdvReac Type Severity Reaction Status Date / Time adhesive AdvReac Rash/Hives Verified 02/11/23 16:47 codeine AdvReac Hallucinati Verified 02/11/23 16:47 ons monosodium glutamate AdvReac Diarrhea Verified 02/11/23 16:47 Physical Exam Vitals: Vital Signs Temp Pulse Resp BP Pulse Ox 02/11/23 21:00 85 21 139/80 97 02/11/23 18:07 99.1 F 95 18 145/70 94 L 02/11/23 16:32 101.4 F H 02/11/23 14:36 101.6 F H 55 L 18 166/66 92 L Intake and Output 02/11/23 02/11/23 02/12/23 14:59 22:59 06:59 Other: Weight 90.718 kg Results CBC & Chem 7: 02/11/23 18:02 02/11/23 18:02 Labs: Abnormal Lab Results - Last 24 Hours (Table) 02/11/23 02/11/23 02/11/23 Range/Units 15:07 15:07 15:07 WBC (3.8-10.6) k/uL Neutrophils # (1.3-7.7) k/uL Lymphocytes # (1.0-4.8) k/uL Sodium (137-145) mmol/L POC Glucose (mg/dL) (70-110) mg/dL Plasma Lactic Acid Daryl <0.5 L (0.7-2.0) mmol/L Calcium (8.4-10.2) mg/dL Total Protein (6.3-8.2) g/dL Albumin (3.5-5.0) g/dL Urine Appearance Slightly Cloudy H (Clear) Urine Protein Trace H (Negative) Urine WBC 7 H (0-5) /hpf Urine Mucus Rare H (None) /hpf SARS-CoV-2 (PCR) Detected A (Not Detectd) 02/11/23 02/11/23 02/11/23 Range/Units 17:52 18:02 18:02 WBC 11.9 H (3.8-10.6) k/uL Neutrophils # 10.6 H (1.3-7.7) k/uL Lymphocytes # 0.4 L (1.0-4.8) k/uL Sodium 136 L (137-145) mmol/L POC Glucose (mg/dL) 111 H (70-110) mg/dL Plasma Lactic Acid Daryl (0.7-2.0) mmol/L Calcium 8.3 L (8.4-10.2) mg/dL Total Protein 6.0 L (6.3-8.2) g/dL Albumin 3.4 L (3.5-5.0) g/dL Urine Appearance (Clear) Urine Protein (Negative) Urine WBC (0-5) /hpf Urine Mucus (None) /hpf SARS-CoV-2 (PCR) (Not Detectd)
[2023-02-12] MEDS: MULTIVITAMINS, THERA 1 EACH TAB PO SCH (09:22)
[2023-02-12 10:47] LABS: Basophils # (A) 0.06 X 10*3/uL (0.00-0.10); Basophils % (A) 0.7 %; Eosinophils # (A) 0.03 X 10*3/uL (0.04-0.35); Eosinophils % (A) 0.3 %; HCT 33.4 % (37.2-46.3); Lymphocytes % (A) 6.7 %; MCH 30.3 pg (27.0-32.0); MCHC 32.9 g/dL (32.0-37.0); Mean Platelet Volume 11.4 FL (9.5-12.2); Monocytes # (A) 1.31 X 10*3/uL (0.20-1.00); Monocytes % (A) 14.6 %; NRBC Per 100 WBC 0 X 10*3/uL (0.00-0.01); Neutrophils # (A) 6.84 X 10*3/uL (1.80-7.70); Platelet Count 205 X 10*3/uL (140-440); RBC 3.63 X 10*6/uL (4.10-5.20); RDW 14.8 % (11.5-14.5); WBC 8.99 X 10*3/uL (4.50-10.00)
[2023-02-12 11:00] LABS: BUN/Creat Ratio 17.67 Ratio (12.00-20.00); Blood Urea Nitrogen 10.6 mg/dL (9.0-27.0); Calcium 8.5 mg/dL (8.7-10.3); Carbon Dioxide 24.8 mmol/L (21.6-31.8); Chloride 102 mmol/L (96-109); Glucose 69 mg/dL (70-110); Potassium 3.5 mmol/L (3.5-5.5); Sodium 140 mmol/L (135-145)
[2023-02-12] MEDS ORDERED: Potassium Replacement Protocol 1 EACH MISC MISCELLANE PRN (15:08)
[2023-02-12] MEDS ORDERED: Magnesium Replacement Protocol 1 EACH MISC MISCELLANE PRN (15:09)
[2023-02-12] MEDS: POTASSIUM CHLORIDE ER 20 MEQ TAB.ER PO SCH ×2 (15:32→15:33)
[2023-02-12] MEDS: MAGNESIUM SULFATE-D5W PMX 1 GM in DEXTROSE/WATER 1 100ML.BAG IVPB SCH ×2 (15:33→16:57)
--- NOTE | 2023-02-12 16:04 | P.PN ---
Subjective Progress Note Date: 02/12/23 Pt feels back to baseline breathing, but still reports some unsteadiness on walking. Discussed with son today regarding patient's inconsistent behavior regarding her wishes in terms of treatment for lymphoma, and his concerns about ability to care for herself at home. Gen: awake, alert HEENT: normocephalic, atraumatic, good hearing acuity, moist mucous membranes Resp: good air exchange, breathing comfortably with no accessory muscle use CVS: good distal perfusion x 4, GI: soft, NTTP, ND : no SPT, no CVAT, hernández catheter not present MSK: no pitting edema, no clubbing Neuro: non-focal, moving all extremities Psych: cooperative, euthymic mood Hospital course: Patient is a 87-year-old female with a PMH of lymphoma (diagnosed November 2022) who presents to the emergency room with complaints of generalized weakness and fever. Patient is following with Dr. Soto and reports having undergone a single chemotherapy treatment 3 weeks ago to which she reacted really poorly. She reports planning on quitting all further chemotherapy treatments. Reports that over the past 2-3 days, she has been getting increasingly weak throughout, unable to walk, and had occasional fevers. Denies chest pain, shortness of breath, cough. Also denies nausea, vomiting, abdominal pain, diarrhea. In the emergency room a CT brain revealed no acute abnormalities with a chest x- ray also unremarkable. EKG revealed sinus tachycardia at [address] segment depression diffusely with no other ST/T-wave changes noted as reviewed by me. Laboratory evaluation was remarkable for leukocytosis of 11.9, COVID PCR positive, with UA showing 3+ ketones. The patient had a T-max of 101.6F in the emergency room with SpO2 97% on room air. Assessment: COVID-19 infection, not requiring supplemental oxygen Recently diagnosed lymphoma status post single chemotherapy treatment Imaging: In the emergency room a CT brain revealed no acute abnormalities with a chest x- ray also unremarkable. EKG revealed sinus tachycardia at [address] segment depression diffusely with no other ST/T-wave changes noted as reviewed by me. Data Review: Laboratory evaluation was remarkable for leukocytosis of 11.9, COVID PCR positive, with UA showing 3+ ketones. The patient had a T-max of 101.6F in the emergency room with SpO2 97% on room air. Plan: Continue with IV hydration with normal saline 100 mL/h PT consult, OT consult pending Oncology consulted, discussed with them on 02/12, patient is still a candidate for chemo responsive lymphoma and tolerated first treatment well. They will have further discussions with patient regarding her wishes to discontinue chemo at this time. DVT prophylaxis: Lovenox subcu The patient is admitted with an anticipated less than 2 midnight stay for evalu ation of COVID CODE STATUS: Full Code Discussed with: Patient Anticipated discharge place: Home Objective - Vital Signs Vital signs: Vital Signs Temp 99.5 F 02/12/23 10:20 Pulse 98 02/12/23 10:20 Resp 19 02/12/23 10:20 BP 117/69 02/12/23 10:20 Pulse Ox 92 L 02/12/23 10:20 FiO2 Intake & Output 02/11/23 02/12/23 02/12/23 18:59 06:59 18:59 Intake Total 300 Balance 300 Weight 90.718 kg 90.718 kg Intake: Oral 300 Other: Voiding Method Bedside Commode Bedside Commode # Voids 1 # Bowel Movements 1 - Labs CBC & Chem 7: 02/12/23 07:47 02/12/23 07:47 Labs: Abnormal Lab Results - Last 24 Hours (Table) 02/11/23 02/11/23 02/11/23 Range/Units 15:07 15:07 15:07 WBC (3.8-10.6) k/uL RBC (4.10-5.20) X 10*6/uL Hgb (12.0-15.0) g/dL Hct (37.2-46.3) % RDW (11.5-14.5) % Neutrophils # (1.3-7.7) k/uL Lymphocytes # (1.0-4.8) k/uL Monocytes # (0.20-1.00) X 10*3/uL Eosinophils # (0.04-0.35) X 10*3/uL Sodium (137-145) mmol/L Anion Gap (4.00-12.00) mmol/L Glucose (70-110) mg/dL POC Glucose (mg/dL) (70-110) mg/dL Plasma Lactic Acid Daryl <0.5 L (0.7-2.0) mmol/L Calcium (8.4-10.2) mg/dL Total Protein (6.3-8.2) g/dL Albumin (3.5-5.0) g/dL Urine Appearance Slightly Cloudy H (Clear) Urine Protein Trace H (Negative) Urine WBC 7 H (0-5) /hpf Urine Mucus Rare H (None) /hpf SARS-CoV-2 (PCR) Detected A (Not Detectd) 02/11/23 02/11/23 02/11/23 Range/Units 17:52 18:02 18:02 WBC 11.9 H (3.8-10.6) k/uL RBC (4.10-5.20) X 10*6/uL Hgb (12.0-15.0) g/dL Hct (37.2-46.3) % RDW (11.5-14.5) % Neutrophils # 10.6 H (1.3-7.7) k/uL Lymphocytes # 0.4 L (1.0-4.8) k/uL Monocytes # (0.20-1.00) X 10*3/uL Eosinophils # (0.04-0.35) X 10*3/uL Sodium 136 L (137-145) mmol/L Anion Gap (4.00-12.00) mmol/L Glucose (70-110) mg/dL POC Glucose (mg/dL) 111 H (70-110) mg/dL Plasma Lactic Acid Daryl (0.7-2.0) mmol/L Calcium 8.3 L (8.4-10.2) mg/dL Total Protein 6.0 L (6.3-8.2) g/dL Albumin 3.4 L (3.5-5.0) g/dL Urine Appearance (Clear) Urine Protein (Negative) Urine WBC (0-5) /hpf Urine Mucus (None) /hpf SARS-CoV-2 (PCR) (Not Detectd) 02/12/23 02/12/23 Range/Units 07:47 07:47 WBC (3.8-10.6) k/uL RBC 3.63 L (4.10-5.20) X 10*6/uL Hgb 11.0 L (12.0-15.0) g/dL Hct 33.4 L (37.2-46.3) % RDW 14.8 H (11.5-14.5) % Neutrophils # (1.3-7.7) k/uL Lymphocytes # 0.60 L (1.0-4.8) k/uL Monocytes # 1.31 H (0.20-1.00) X 10*3/uL Eosinophils # 0.03 L (0.04-0.35) X 10*3/uL Sodium (137-145) mmol/L Anion Gap 13.20 H (4.00-12.00) mmol/L Glucose 69 L (70-110) mg/dL POC Glucose (mg/dL) (70-110) mg/dL Plasma Lactic Acid Daryl (0.7-2.0) mmol/L Calcium 8.5 L (8.4-10.2) mg/dL Total Protein (6.3-8.2) g/dL Albumin (3.5-5.0) g/dL Urine Appearance (Clear) Urine Protein (Negative) Urine WBC (0-5) /hpf Urine Mucus (None) /hpf SARS-CoV-2 (PCR) (Not Detectd)
--- NOTE | 2023-02-12 16:31 | P.CONS ---
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 She is a patient of Dr. Good. She initially presented with palpable left neck mass, she had CT soft tissue neck w/o contrast on 11/14/2022 which revealed 2 suspicious left neck nodes up to 14 mm,asymmetric fullness at base if tongue. She has a remote history of bilateral breast cancer, s/p mastectomies in 1978 and 1979. She was referred to Dr Dawkins,had a PET scan on 12/13/2022 which showed uptake in left base of tongue and 2 left level II neck nodes largest 1.5 cm and then biopsy of left cervical node which came back positive for diffuse large B cell lymphoma, FISH for double hit was negative. She has stage IIA disease. Despite her age,she has a very good performance status and no other co-morbidities. Discussed RCHOP regimen. On 01/25/2023,she started RCHOP (dose was reduced by 30%). She tolerated the first cycle well. Plan was to increase to full dose RCHOP as of cycle #2. Plan to repeat PET scan after cycle #3, if complete response,will do total 4 cycles of RCHOP followed by 2 additional cycles of rituxan. patient presented to the emergency room with complaints of progressing weakness and difficulties ambulating due to lower extremity weakness, and fever. Patient also complains of numbness in bilateral feet. Upon admission she did test po sitive for COVID. T max 101.6. chest x-ray revealed no significant interval change or evidence suggest acute cardiopulmonary processes. CT brain was negative for acute intracranial processes. Upon admission CBC revealed mild leukocytosis with WBC 11.9. Hgb and platelets normal. Pt now afebrile. Reporting persisting generalized weakness and lower ext weakness. Review of Systems 10 point ROS is negative except as stated in the HPI Past Medical History Past Medical History: Cancer, Hyperlipidemia, Osteoarthritis (OA) Additional Past Medical History / Comment(s): lymphoma dx Nov 2022, hx BREAST CA. >40 yrs. ago, DIVERTICULITIS/POLYPS. TAKES NOT MEDS FOR HYPERLIPIDS. History of Any Multi-Drug Resistant Organisms: None Reported Past Surgical History: Bowel Resection, Hysterectomy, Tonsillectomy Additional Past Surgical History / Comment(s): BOW. RESECTION (09/24/2013) IN [place]. BILATERAL MASTECTOMY (1978). SHE[place]. CATARACTS,breast bx,left rib removed Past Anesthesia/Blood Transfusion Reactions: No Reported Reaction Additional Past Anesthesia/Blood Transfusion Reaction / Comm: nightmares coming out of anesthesia Past Psychological History: Anxiety Smoking Status: Never smoker Past Alcohol Use History: None Reported Past Drug Use History: None Reported - Past Family History Father Additional Family Medical History / Comment(s): AORTIC ANEURYSM. Mother Family Medical History: Cancer, Myocardial Infarction ([place]) Additional Family Medical History / Comment(s): COLON. Sister(s) Family Medical History: Cancer Additional Family Medical History / Comment(s): BREAST. Medications and Allergies Home Medications Medication Instructions Recorded Confirmed Type Multivit-Min/FA/Lycopen/Lutein 1 tab PO DAILY 02/11/23 02/11/23 History [Centrum Silver Tablet] Allergies Allergy/AdvReac Type Severity Reaction Status Date / Time adhesive AdvReac Rash/Hives Verified 02/11/23 16:47 codeine AdvReac Hallucinati Verified 02/11/23 16:47 ons monosodium glutamate AdvReac Diarrhea Verified 02/11/23 16:47 Physical Exam Vitals: Vital Signs Temp Pulse Pulse Resp BP BP Pulse Ox 02/12/23 10:20 99.5 F 98 19 117/69 92 L 02/12/23 09:35 96 18 162/84 96 02/12/23 06:31 96 154/69 91 L 02/12/23 05:17 92 16 169/86 93 L 02/12/23 01:26 88 16 121/66 93 L 02/11/23 21:00 85 21 139/80 97 02/11/23 18:07 99.1 F 95 18 145/70 94 L 02/11/23 16:32 101.4 F H Intake and Output 02/12/23 02/12/23 02/12/23 06:59 14:59 22:59 Intake Total 300 Balance 300 Intake: Oral 300 Other: Voiding Method Bedside Commode Bedside Commode # Voids 1 # Bowel Movements 1 Weight 90.718 kg Results CBC & Chem 7: 02/12/23 07:47 02/12/23 07:47 Labs: Abnormal Lab Results - Last 24 Hours (Table) 02/11/23 02/11/23 02/11/23 Range/Units 15:07 15:07 15:07 WBC (3.8-10.6) k/uL RBC (4.10-5.20) X 10*6/uL Hgb (12.0-15.0) g/dL Hct (37.2-46.3) % RDW (11.5-14.5) % Neutrophils # (1.3-7.7) k/uL Lymphocytes # (1.0-4.8) k/uL Monocytes # (0.20-1.00) X 10*3/uL Eosinophils # (0.04-0.35) X 10*3/uL Sodium (137-145) mmol/L Anion Gap (4.00-12.00) mmol/L Glucose (70-110) mg/dL POC Glucose (mg/dL) (70-110) mg/dL Plasma Lactic Acid Daryl <0.5 L (0.7-2.0) mmol/L Calcium (8.4-10.2) mg/dL Total Protein (6.3-8.2) g/dL Albumin (3.5-5.0) g/dL Urine Appearance Slightly Cloudy H (Clear) Urine Protein Trace H (Negative) Urine WBC 7 H (0-5) /hpf Urine Mucus Rare H (None) /hpf SARS-CoV-2 (PCR) Detected A (Not Detectd) 02/11/23 02/11/23 02/11/23 Range/Units 17:52 18:02 18:02 WBC 11.9 H (3.8-10.6) k/uL RBC (4.10-5.20) X 10*6/uL Hgb (12.0-15.0) g/dL Hct (37.2-46.3) % RDW (11.5-14.5) % Neutrophils # 10.6 H (1.3-7.7) k/uL Lymphocytes # 0.4 L (1.0-4.8) k/uL Monocytes # (0.20-1.00) X 10*3/uL Eosinophils # (0.04-0.35) X 10*3/uL Sodium 136 L (137-145) mmol/L Anion Gap (4.00-12.00) mmol/L Glucose (70-110) mg/dL POC Glucose (mg/dL) 111 H (70-110) mg/dL Plasma Lactic Acid Daryl (0.7-2.0) mmol/L Calcium 8.3 L (8.4-10.2) mg/dL Total Protein 6.0 L (6.3-8.2) g/dL Albumin 3.4 L (3.5-5.0) g/dL Urine Appearance (Clear) Urine Protein (Negative) Urine WBC (0-5) /hpf Urine Mucus (None) /hpf SARS-CoV-2 (PCR) (Not Detectd) 02/12/23 02/12/23 Range/Units 07:47 07:47 WBC (3.8-10.6) k/uL RBC 3.63 L (4.10-5.20) X 10*6/uL Hgb 11.0 L (12.0-15.0) g/dL Hct 33.4 L (37.2-46.3) % RDW 14.8 H (11.5-14.5) % Neutrophils # (1.3-7.7) k/uL Lymphocytes # 0.60 L (1.0-4.8) k/uL Monocytes # 1.31 H (0.20-1.00) X 10*3/uL Eosinophils # 0.03 L (0.04-0.35) X 10*3/uL Sodium (137-145) mmol/L Anion Gap 13.20 H (4.00-12.00) mmol/L Glucose 69 L (70-110) mg/dL POC Glucose (mg/dL) (70-110) mg/dL Plasma Lactic Acid Daryl (0.7-2.0) mmol/L Calcium 8.5 L (8.4-10.2) mg/dL Total Protein (6.3-8.2) g/dL Albumin (3.5-5.0) g/dL Urine Appearance (Clear) Urine Protein (Negative) Urine WBC (0-5) /hpf Urine Mucus (None) /hpf SARS-CoV-2 (PCR) (Not Detectd) Chest x-ray: report reviewed CT Scan - head: report reviewed Assessment and Plan (1) Diffuse large B cell lymphoma Current Visit: Yes Status: Acute Priority: High Code(s): C83.30 - DIFFUSE LARGE B-CELL LYMPHOMA, UNSPECIFIED SITE SNOMED Code(s): 154269459 (2) COVID-19 virus infection Current Visit: Yes Status: Acute Priority: High Code(s): U07.1 - COVID-19 SNOMED Code(s): 612401884 Plan: COVID: -Has been having progressive weakness and fever. T max 101.6 -COVID positive. Blood cultures pending -Spoke with pharmacy and paxlovid not on formulary at the hospital -Defer to IM team for management Diffuse large B cell lymphoma: -Full history in HPI -Completed cycle 1 RCHOP (dose was reduced by 30%) on 01/25/23. She tolerated the first cycle well. Plan was to increase to full dose RCHOP as of cycle #2. P kinza to repeat PET scan after cycle #3, if complete response,will do total 4 cycles of RCHOP followed by 2 additional cycles of rituxan. -At todays visit, pt reports she did not tolerate treatment well and she has spoken to her son and she wishes to discontinue treatment. However, when pt had f/u s/p cycle1 she was overall doing well. Recent progressive symptoms may be due to her COVID infection, not treatment itself. Will schedule f/u with Dr Good upon discharge to further discuss treatment and goals of care Attests: I have seen and examined pt, performed H&P, developed impression and plan of care. Discussed with dictator. Agree with documentation, dictated as a scribe.
[2023-02-13 07:48] VITALS: BP 110/57; PULSE 82; RESP 19; TEMP 98.6
[2023-02-13] MEDS: MULTIVITAMINS, THERA 1 EACH TAB PO SCH (08:58)
[2023-02-13] MEDS ORDERED: ENOXAPARIN 40 MG/0.4 ML SYRINGE SQ SCH (09:00)
--- NOTE | 2023-02-13 10:59 | P.DS ---
Providers Date of admission: 02/11/23 20:19 Expected date of discharge: 02/13/23 Attending physician: Rod Cole MD Consults: 02/12/23 02:36 Consult Physician Urgent Consulting Provider: Antonio Christiansen Consult Reason/Comments: Lymphoma Do you want consulting provider notified?: Yes Primary care physician: Karina [facility] Hospital Course: Discharge Diagnosis: COVID-19 infection, not requiring supplemental oxygen Recently diagnosed lymphoma status post single chemotherapy treatment Hospital Course: 87-year-old female with a PMH of lymphoma (diagnosed November 2022) who presents to the emergency room with complaints of generalized weakness and fever. In the emergency room a CT brain revealed no acute abnormalities with a chest x-ray also unremarkable. EKG revealed sinus tachycardia at [address] segment depression diffusely with no other ST/T-wave changes noted as reviewed by me. Laboratory evaluation was remarkable for leukocytosis of 11.9, COVID PCR positive, with UA showing 3+ ketones. The patient had a T-max of 101.6F in the emergency room with SpO2 97% on room air. Evaluated by oncology. Patient wishing to terminate all treatment for her lymphoma. She will follow- up with her oncologist outpatient. Asymptomatic at the time of discharge. Able to eat and drink. She is able to ambulate using a walker, on room air. Patient seen and examined at bedside. Vital signs reviewed and stable. General: nontoxic, no distress, appears at stated age Derm: warm, dry Head: atraumatic, normocephalic, symmetric Eyes: EOMI, no lid lag, anicteric sclera Mouth: no lip lesion, mucus membranes moist Cardiovascular: S1S2 reg, no murmur Lungs: CTA bilateral, no rhonchi, no rales , no accessory muscle use Abdominal: soft, nontender to palpation, no guarding, no appreciable organomegaly Ext: no gross muscle atrophy, no edema, no contractures Neuro: CN II-XI grossly intact, no focal neuro deficits Psych: Alert, oriented, appropriate affect A total of 33 minutes of time were spent preparing this complex discharge summary. Patient was discharged on 02/13/23 at 10:41. Patient Condition at Discharge: Stable Plan - Discharge Summary Discharge Rx Participant: No New Discharge Prescriptions: Continue Multivit-Min/FA/Lycopen/Lutein [Centrum Silver Tablet] 1 tab PO DAILY Discharge Medication List Multivit-Min/FA/Lycopen/Lutein [Centrum Silver Tablet] 1 tab PO DAILY 02/11/23 [History] Follow up Appointment(s)/Referral(s): John Awad MD [Primary Care Provider] - 1-2 days [facility], [NON-STAFF] - 1 Week ([facility] will call you to arrange a visit) Jack Good MD [STAFF PHYSICIAN] - 1 Week Patient Instructions/Handouts: Weakness (DC), COVID-19 (Coronavirus Disease 2019) (DC) Activity/Diet/Wound Care/Special Instructions: Please see your PCP and oncologist. Discharge Disposition: HOME SELF-CARE
== END 2023-02-13 11:55 | disposition home or self-care (01) ==
LOC: EC 14:27 → 6NMEDSUR 20:19 → 4SSUR 02-12 09:15
PROVIDERS: ADMIT Internal Medicine; ATTEND Internal Medicine
DX: U07.1 COVID-19 (principal); C83.30 Diffuse large B-cell lymphoma, unspecified site; E86.0 Dehydration; E78.5 Hyperlipidemia, unspecified; F41.9 Anxiety disorder, unspecified; Z85.3 Personal history of malignant neoplasm of breast; Z90.13 Acquired absence of bilateral breasts and nipples; Z88.5 Allergy status to narcotic agent
CPT/HCPCS: 96365; 96366; 96372; 96361 ×2; 99291; 36415; 93005; 80053; 80048; 83605; 83735 ×2; 85025 ×2; 85610; 85730; 82272; 81001; 87040; 87636; 71046; 70450; G0378 ×4; J1650; J3475

== ENCOUNTER → 2023-02-21 | Outpatient (CLI) | payer MEDICARE ==
[2023-02-21 19:14] LABS: ALT 40 U/L (8-44); AST 23 U/L (13-35); Albumin 3.9 g/dL (3.8-4.9); Alkaline Phosphatase 96 U/L (41-126); BUN/Creat Ratio 24.88 Ratio (12.00-20.00); Blood Urea Nitrogen 19.9 mg/dL (9.0-27.0); Calcium 10.1 mg/dL (8.7-10.3); Carbon Dioxide 27.3 mmol/L (21.6-31.8); Chloride 102 mmol/L (96-109); Globulin 2.6 g/dL (1.6-3.3); Glucose 103 mg/dL (70-110); Sodium 143 mmol/L (135-145); Total Bilirubin 0.2 mg/dL (0.3-1.2); Total Protein 6.5 g/dL (6.2-8.2)
[2023-02-21 19:22] LABS: HCT 38.6 % (37.2-46.3); HGB 12.3 g/dL (12.0-15.0); MCH 30.7 pg (27.0-32.0); MCHC 31.9 g/dL (32.0-37.0); MCV 96.3 FL (80.0-97.0); Mean Platelet Volume 11.9 FL (9.5-12.2); NRBC Per 100 WBC 0 X 10*3/uL (0.00-0.01); Platelet Count 253 X 10*3/uL (140-440); RBC 4.01 X 10*6/uL (4.10-5.20); RDW 15.5 % (11.5-14.5); WBC 5.76 X 10*3/uL (4.50-10.00)
== END | disposition home or self-care (01) ==
LOC: LABWHC1 12:03
PROVIDERS: ATTEND Physician Assistant
DX: C85.10 Unspecified B-cell lymphoma, unspecified site (principal); E87.6 Hypokalemia
CPT/HCPCS: 36415; 80053; 85027

== ENCOUNTER 2023-03-27 06:27 | Day surgery (SDC) | payer MEDICARE ==
[~2023-03-27 06:27] MED LIST changes: +DEXAMETHASONE SOD PHOSPHATE 4 MG/ML 1 ML VIAL IV ONE; +HEPARIN SODIUM,PORCINE 5,000 UNIT/ML 1 ML VIAL SQ PRN; -HEPARIN SODIUM,PORCINE/PF 5,000 UNIT/0.5 ML SYRINGE SQ PRN; -LIDOCAINE 1% (10MG/ML) FOR IV START INTRADERMA PRN; -Pre Op ABX Message 1 EACH MISC MISCELLANE ONE; -fentaNYL (PF) 50 MCG/ML 2 ML AMP IV PRN
[2023-03-27] MEDS ORDERED: fentaNYL (PF) 50 MCG/ML 2 ML AMP IV PRN (07:00)
[2023-03-27 07:05] VITALS: TEMP 97.7
[2023-03-27] MEDS ORDERED: fentaNYL (PF) 50 MCG/ML 2 ML AMP ONE (08:18)
[2023-03-27] MEDS ORDERED: PROPOFOL 10 MG/ML 20 ML VIAL IV ONE (08:18)
[2023-03-27] MEDS ORDERED: KETAMINE HCL IN 0.9 % NACL 50 MG/5 ML SYRINGE ONE (08:18)
--- NOTE | 2023-03-27 08:21 | P.GSHP ---
History of Present Illness H&P Date: 03/27/23 Chief Complaint: History of lymphoma This is a 87-year-old female with previous history of lymphoma. Patient presents today for Port-A-Cath removal. Past Medical History Past Medical History: Cancer, Hyperlipidemia, Osteoarthritis (OA) Additional Past Medical History / Comment(s): HAS CHOSEN TO D/C CHEMO. Lymphoma dx Nov 2022, hx BREAST CA. >40 yrs. ago, DIVERTICULITIS/POLYPS. TAKES NOT MEDS FOR HYPERLIPIDS. History of Any Multi-Drug Resistant Organisms: None Reported Past Surgical History: Bowel Resection, Hysterectomy, Tonsillectomy Additional Past Surgical History / Comment(s): BOWEL. RESECTION (09/24/2013) IN [place]. BILATERAL MASTECTOMY (1978). SHELBI. CATARACTS,breast bx,left rib removed Past Anesthesia/Blood Transfusion Reactions: No Reported Reaction Additional Past Anesthesia/Blood Transfusion Reaction / Comment(s): nightmares coming out of anesthesia Past Psychological History: Anxiety Smoking Status: Never smoker Past Alcohol Use History: None Reported Past Drug Use History: None Reported - Past Family History Father Additional Family Medical History / Comment(s): AORTIC ANEURYSM. Mother Family Medical History: Cancer, Myocardial Infarction ([place]) Additional Family Medical History / Comment(s): COLON. Sister(s) Family Medical History: Cancer Additional Family Medical History / Comment(s): BREAST. Medications and Allergies Home Medications Medication Instructions Recorded Confirmed Type Multivit-Min/FA/Lycopen/Lutein 1 tab PO DAILY 02/11/23 03/27/23 History [Centrum Silver Tablet] Allergies Allergy/AdvReac Type Severity Reaction Status Date / Time adhesive AdvReac Rash/Hives Verified 03/27/23 06:47 codeine AdvReac Hallucinati Verified 03/27/23 06:47 ons monosodium glutamate AdvReac Diarrhea Verified 03/27/23 06:47 Surgical - Exam Vital Signs Temp Pulse Resp BP Pulse Ox 97.7 F 95 18 151/74 95 03/27/23 07:00 03/27/23 07:00 03/27/23 07:00 03/27/23 07:00 03/27/23 07:00 - General well developed, well nourished, no distress - Eyes PERRL - Respiratory normal expansion - Cardiovascular Rhythm: regular - Abdomen Abdomen: soft, non tender Assessment and Plan Assessment: History of lymphoma. We'll perform Port-A-Cath removal.
[2023-03-27] MEDS ORDERED: LIDOCAINE 1%-EPI 1:100,000 50 ML VIAL SQ ONE (08:37)
--- NOTE | 2023-03-27 08:58 | P.OP ---
Date of Procedure: 03/27/23 Preoperative Diagnosis: History of lymphoma Postoperative Diagnosis: History of lymphoma Procedure(s) Performed: Removal of Port-A-Cath Anesthesia: MATILDE Surgeon: Giorgio Arias Estimated Blood Loss (ml): 5 Pathology: none sent Condition: stable Disposition: PACU Description of Procedure: The patient's placed on operative table in supine position. She received IV sedation. Her right chest was prepped and draped usual sterile fashion. The area was anesthetized 1% local Xylocaine. Then a skin incision was made over the Port-A-Cath. Using blunt sharp dissection with cautery the Port-A-Cath was removed. There was no bleeding seen. The skin was closed interrupted 3-0 Mon ocryl suture. Dermabond was applied. Patient top she will well. She was sent to recovery room in stable condition.
[2023-03-27 09:06] VITALS: RESP 16
[2023-03-27 09:30] VITALS: BP 160/77; PULSE 91
== END 2023-03-27 09:55 | disposition home or self-care (01) ==
LOC: OR 06:27
PROVIDERS: ATTEND Surgery
DX: C85.90 Non-Hodgkin lymphoma, unspecified, unspecified site (principal); E78.5 Hyperlipidemia, unspecified; M19.90 Unspecified osteoarthritis, unspecified site; K57.92 Diverticulitis of intestine, part unspecified, without perforation or abscess without bleeding; F41.9 Anxiety disorder, unspecified; Z82.49 Family history of ischemic heart disease and other diseases of the circulatory system; Z79.899 Other long term (current) drug therapy; Z98.890 Other specified postprocedural states; Z90.710 Acquired absence of both cervix and uterus; Z88.8 Allergy status to other drugs, medicaments and biological substances; Z85.3 Personal history of malignant neoplasm of breast; Z88.5 Allergy status to narcotic agent; Z91.048 Other nonmedicinal substance allergy status
CPT/HCPCS: 36590; J1644; J1100; J0690; J2405; J3010; J2704

== ENCOUNTER 2023-04-21 08:24 | Emergency (ER) | payer OTHER, MEDICARE ==
--- NOTE | 2023-04-21 09:03 | XR ---
Left knee. HISTORY: Pain following fall. COMPARISON: None. TECHNIQUE: 3 views left knee were obtained. FINDINGS: There is no fracture, dislocation or focal intraosseous abnormality. No joint effusion. There is mild osteophytic change of the lateral compartment and mild to possibly moderate osteophytic change of medial compartment where there is [id number] joint space narrowing and hypertrophic spurring. The patellofemoral compartment is unremarkable. IMPRESSION: 1. No acute trauma. 2. Mild to moderate degenerative change of the medial and lateral compartments of the knee.
--- NOTE | 2023-04-21 09:08 | ED ---
Fall HPI - General Chief Complaint: Fall Stated Complaint: Fall, knee pain Time Seen by Provider: 04/21/23 08:29 Source: patient, RN notes reviewed Mode of arrival: ambulatory Limitations: no limitations - History of Present Illness Initial Comments: 87-year-old female presents emergency department with complaint of a fall. Patient states she had mechanical fall she complains of left knee pain. States is abrasion mild tenderness she is able to ambulate with her walker. No head injury no loss conscious denies any blood thinners. - Related Data Home Medications Medication Instructions Recorded Confirmed Multivit-Min/FA/Lycopen/Lutein 1 tab PO DAILY 02/11/23 03/27/23 [Centrum Silver Tablet] Allergies Allergy/AdvReac Type Severity Reaction Status Date / Time adhesive AdvReac Rash/Hives Verified 04/21/23 08:34 codeine AdvReac Hallucinati Verified 04/21/23 08:34 ons monosodium glutamate AdvReac Diarrhea Verified 04/21/23 08:34 Review of Systems ROS Statement: Those systems with pertinent positive or pertinent negative responses have been documented in the HPI. ROS Other: All systems not noted in ROS Statement are negative. Past Medical History Past Medical History: Cancer Additional Past Medical History / Comment(s): lymphoma dx Nov 2022, hx BREAST CA. >40 yrs. ago, DIVERTICULITIS/POLYPS. TAKES NOT MEDS FOR HYPERLIPIDS. History of Any Multi-Drug Resistant Organisms: None Reported Past Surgical History: Bowel Resection, Hysterectomy, Tonsillectomy Additional Past Surgical History / Comment(s): BOW. RESECTION (09/24/2013) IN [place]. BILATERAL MASTECTOMY (1978). SHELBI. CATARACTS,breast bx,left rib removed Past Anesthesia/Blood Transfusion Reactions: No Reported Reaction Additional Past Anesthesia/Blood Transfusion Reaction / Comment(s): nightmares coming out of anesthesia Past Psychological History: Anxiety Smoking Status: Never smoker Past Alcohol Use History: None Reported Past Drug Use History: None Reported - Past Family History Father Additional Family Medical History / Comment(s): AORTIC ANEURYSM. Mother Family Medical History: Cancer, Myocardial Infarction ([place]) Additional Family Medical History / Comment(s): COLON. Sister(s) Family Medical History: Cancer Additional Family Medical History / Comment(s): BREAST. General Exam Limitations: no limitations General appearance: alert, in no apparent distress Head exam: Present: atraumatic, normocephalic, normal inspection Eye exam: Present: normal appearance, PERRL, EOMI. Absent: scleral icterus, conjunctival injection, periorbital swelling Respiratory exam: Present: normal lung sounds bilaterally. Absent: respiratory distress, wheezes, rales, rhonchi, stridor Cardiovascular Exam: Present: regular rate, normal rhythm, normal heart sounds. Absent: systolic murmur, diastolic murmur, rubs, gallop, clicks Extremities exam: Present: other (left knee mild tenderness, abrasion noted) Course Vital Signs 04/21/23 04/21/23 08:28 09:18 Temperature 98.5 F Pulse Rate 95 74 Respiratory 18 18 Rate Blood Pressure 168/72 154/87 O2 Sat by Pulse 97 99 Oximetry Medical Decision Making - Medical Decision Making Was pt. sent in by a medical professional or institution ([facility], [facility], urgent care, hospital, or correction...) When possible be specific @ -No Did you speak to anyone other than the patient for history (EMS, parent, family, police, friend...)? What history was obtained from this source @ -No Did you review nursing and triage notes (agree or disagree)? Why? @ -I reviewed and agree with nursing and triage notes Were old charts reviewed (outside hosp., previous admission, EMS record, old EKG, old radiological studies, urgent care reports/EKG's, correction records)? Report findings @ -No old charts were reviewed Differential Diagnosis (chest pain, altered mental status, abdominal pain women, abdominal pain men, vaginal bleeding, weakness, fever, dyspnea, syncope, headache, dizziness, GI bleed, back pain, seizure, CVA, palpatations, mental health, musculoskeletal)? @ -[Knee contusion, leg fracture EKG interpreted by me (3pts min.). @ -None X-rays interpreted by me (1pt min.). @ -[X-ray left knee 3 view no acute fracture or dislocation moderate osteoarthritis CT interpreted by me (1pt min.). @ -[None done U/S interpreted by me (1pt. min.). @ -None done What testing was considered but not performed or refused? (CT, X-rays, U/S, labs)? Why? @ -None What meds were considered but not given or refused? Why? @ -None Did you discuss the management of the patient with other professionals (professionals i.e. , PA, [facility], lab, RT, psych nurse, social contact worker, director hematology, teacher, senior grants officer, oil field caser)? Give summary @ -No Was smoking cessation discussed for >3mins.? @ -No Was critical care preformed (if so, how long)? @ -No Were there social determinants of health that impacted care today? How? (Homelessness, low income, unemployed, alcoholism, drug addiction, transportation, low edu. Level, literacy, decrease access to med. care, [facility], rehab)? @ -No Was there de-escalation of care discussed even if they declined (Discuss DNR or withdrawal of care, Hospice)? DNR status @ -No What co-morbidities impacted this encounter? (DM, HTN, Smoking, COPD, CAD, Cancer, CVA, ARF, Chemo, Hep., AIDS, mental health diagnosis, sleep apnea, morbid obesity)? @ -None Was patient admitted / discharged? Hospital course, mention meds given and route, prescriptions, significant lab abnormalities, going to OR and other p ertinent info. @ -[Discharge patient has a left knee contusion, abrasion no acute fracture patient able to ambulate discharged in stable condition Undiagnosed new problem with uncertain prognosis? @ -No Drug Therapy requiring intensive monitoring for toxicity (Heparin, Nitro, Insulin, Cardizem)? @ -No Were any procedures done? @ -No Diagnosis/symptom? @ -[Fall, left knee contusion Acute, or Chronic, or Acute on Chronic? @ -Acute Uncomplicated (without systemic symptoms) or Complicated (systemic symptoms)? @ -Uncomplicated Side effects of treatment? @ -[No Exacerbation, Progression, or Severe Exacerbation? @ -No Poses a threat to life or bodily function? How? (Chest pain, USA, ME, pneumonia, PE, COPD, DKA, ARF, appy, cholecystitis, CVA, Diverticulitis, Homicidal, Suicidal, threat to staff... and all critical care pts) @ -No Disposition Clinical Impression: Fall, Contusion of knee Disposition: HOME SELF-CARE Condition: Stable Instructions (If sedation given, give patient instructions): Contusion in Adults (ED), Knee Pain (ED) Additional Instructions: Please return to the Emergency Department if symptoms worsen or any other concerns. Is patient prescribed a controlled substance at d/c from ED?: No Referrals: Francis Reese DO [Primary Care Provider] - 1-2 days Time of Disposition: 09:08
[2023-04-21 09:20] VITALS: BP 154/87; PULSE 74; RESP 18; TEMP 98.5
== END 2023-04-21 09:20 | disposition home or self-care (01) ==
LOC: EC 08:24
DX: S80.02XA Contusion of left knee, initial encounter (principal); Z91.09 Other allergy status, other than to drugs and biological substances; Z88.5 Allergy status to narcotic agent; Z88.8 Allergy status to other drugs, medicaments and biological substances; Z86.59 Personal history of other mental and behavioral disorders; W18.30XA Fall on same level, unspecified, initial encounter
CPT/HCPCS: 99283

== ENCOUNTER 2024-03-01 11:32 | Emergency (ER) | payer MEDICARE ==
--- NOTE | 2024-03-01 12:09 | ED ---
General Adult HPI - General Chief complaint: Syncope Stated complaint: syncope Time Seen by Provider: 03/01/24 11:35 Source: patient, EMS, RN notes reviewed, old records reviewed Mode of arrival: EMS - History of Present Illness Initial comments: This is an 88-year-old female who states while she was shopping she had nothing to drink or eat this morning which is somewhat unusual and she felt lightheaded and needed to sit down before she passed out. Patient states if she did not sit down she probably would have passed out. Patient states currently she has no symptoms. Patient states at no time did she have any chest pain difficulty breathing or shortness of breath. Patient denies any fever chills or cough. Patient denies any abdominal pain patient [place] any recent nausea vomiting or diarrhea. Patient states she feels at her baseline. - Related Data Home Medications Medication Instructions Recorded Confirmed Multivit-Min/FA/Lycopen/Lutein 1 tab PO DAILY 02/11/23 03/27/23 [Centrum Silver Tablet] Allergies Allergy/AdvReac Type Severity Reaction Status Date / Time adhesive AdvReac Rash/Hives Verified 03/01/24 11:39 codeine AdvReac Hallucinati Verified 03/01/24 11:39 ons monosodium glutamate AdvReac Diarrhea Verified 03/01/24 11:39 Review of Systems ROS Statement: Those systems with pertinent positive or pertinent negative responses have been documented in the HPI. ROS Other: All systems not noted in ROS Statement are negative. Past Medical History Past Medical History: Cancer Additional Past Medical History / Comment(s): lymphoma dx Nov 2022, hx BREAST CA. >40 yrs. ago, DIVERTICULITIS/POLYPS. TAKES NOT MEDS FOR HYPERLIPIDS. History of Any Multi-Drug Resistant Organisms: None Reported Past Surgical History: Bowel Resection, Hysterectomy, Tonsillectomy Additional Past Surgical History / Comment(s): BOW. RESECTION (09/24/2013) IN [place]. BILATERAL MASTECTOMY (1978). SHELBI. CATARACTS,breast bx,left rib removed Past Anesthesia/Blood Transfusion Reactions: No Reported Reaction Additional Past Anesthesia/Blood Transfusion Reaction / Comment(s): nightmares coming out of anesthesia Past Psychological History: Anxiety Smoking Status: Never smoker Past Alcohol Use History: None Reported Past Drug Use History: None Reported - Past Family History Father Additional Family Medical History / Comment(s): AORTIC ANEURYSM. Mother Family Medical History: Cancer, Myocardial Infarction ([place]) Additional Family Medical History / Comment(s): COLON. Sister(s) Family Medical History: Cancer Additional Family Medical History / Comment(s): BREAST. General Exam - General Exam Comments Initial Comments: GENERAL: Patient is well-developed and well-nourished. Patient is nontoxic and well- hydrated and is in no acute distress. ENT: Neck is soft and supple. No significant lymphadenopathy is noted. Oropharynx is clear. Moist mucous membranes. Neck has full range of motion without eliciting any pain. EYES: The sclera were anicteric and conjunctiva were pink and moist. Extraocular movements were intact and pupils were equal round and reactive to light. Eyelids were unremarkable. PULMONARY: Unlabored respirations. Good breath sounds bilaterally. No audible rales rhonchi or wheezing was noted. CARDIOVASCULAR: There is a regular rate and rhythm without any murmurs gallops or rubs. ABDOMEN: Soft and nontender with normal bowel sounds. SKIN: Skin is clear with no lesions or rashes and otherwise unremarkable. NEUROLOGIC: Patient is alert and oriented x3. Cranial nerves II through XII are grossly intact. Motor and sensory are also intact. Normal speech, volume and content. Symmetrical smile. MUSCULOSKELETAL: Normal extremities with adequate strength and full range of motion. No lower extremity swelling or edema. No calf tenderness. LYMPHATICS: No significant lymphadenopathy is noted PSYCHIATRIC: Normal psychiatric evaluation. Course Vital Signs 03/01/24 03/01/24 03/01/24 11:33 12:04 13:00 Temperature 98.7 F Pulse Rate 80 80 Pulse Rate [ 85 Sitting] Pulse Rate [ 97 Standing] Pulse Rate [ 89 Supine] Respiratory 20 18 Rate Blood Pressure 178/84 188/82 Blood Pressure 192/87 [Sitting] Blood Pressure 177/96 [Standing] Blood Pressure 180/89 [Supine] O2 Sat by Pulse 96 97 Oximetry Medical Decision Making - Medical Decision Making EKG is interpreted by myself EKG shows a sinus rhythm at 80 bpm OH interval 145 QRS is 90 QT interval is 367 QTc is 403. Patient's EKG shows no ST segment elevation or depression Was pt. sent in by a medical professional or institution (, PA, [employer], urgent care, hospital, or alf...) When possible be specific @ -No Did you speak to anyone other than the patient for history (EMS, parent, family, police, friend...)? What history was obtained from this source @ -No Did you review nursing and triage notes (agree or disagree)? Why? @ -I reviewed and agree with nursing and triage notes Were old charts reviewed (outside hosp., previous admission, EMS record, old EKG, old radiological studies, urgent care reports/EKG's, alf records)? Report findings @ -No old charts were reviewed Differential Diagnosis? @ -Differential Syncope: Valvular disease, hypertrophic cardiomyopathy, pulmonary embolism, tamponade, tachycardia, bradycardia, [place], hypovolemia, hemorrhage, dissection, anemia, intracranial hemorrhage, seizure, hypoglycemia, carbon monoxide poisoning, this is not meant to be an all-inclusive list. EKG interpreted by me (3pts min.). @ -As above X-rays interpreted by me (1pt min.). @ -Chest x-ray shows no acute BuMel CT interpreted by me (1pt min.). @ -None done U/S interpreted by me (1pt. min.). @ -None done What testing was considered but not performed or refused? (CT, X-rays, U/S, labs)? Why? @ -None What meds were considered but not given or refused? Why? @ -None Did you discuss the management of the patient with other professionals (professionals i.e. , PA, BILINGUAL TEACHER, lab, RT, psych nurse, social group worker, respiratory equipment assistant, teacher, business development officer, case reviewer)? Give summary @ -No Was smoking cessation discussed for >3mins.? @ -No Was critical care preformed (if so, how long)? @ -No Were there social determinants of health that impacted care today? How? (Homelessness, low income, unemployed, alcoholism, drug addiction, transportation, low edu. Level, literacy, decrease access to med. care, skilled nursing, rehab)? @ -No Was there de-escalation of care discussed even if they declined (Discuss DNR or withdrawal of care, Hospice)? DNR status @ -No What co-morbidities impacted this encounter? (DM, HTN, Smoking, COPD, CAD, Cancer, CVA, ARF, Chemo, Hep., AIDS, mental health diagnosis, sleep apnea, m orbid obesity)? @ -None Was patient admitted / discharged? Hospital course, mention meds given and r oute, prescriptions, significant lab abnormalities, going to OR and other pertinent info. @ -Patient was not orthostatic positive. Patient had no symptoms while in the emergency department. Patient was eating and drinking and felt good enough to go home. Patient had no complaints at discharge Undiagnosed new problem with uncertain prognosis? @ -No Drug Therapy requiring intensive monitoring for toxicity (Heparin, Nitro, Insulin, Cardizem)? @ -No Were any procedures done? @ -No Diagnosis/symptom? @ -Near syncope Acute, or Chronic, or Acute on Chronic? @ -Acute Uncomplicated (without systemic symptoms) or Complicated (systemic symptoms)? @ -Complicated Side effects of treatment? @ -No Exacerbation, Progression, or Severe Exacerbation? @ -No Poses a threat to life or bodily function? How? (Chest pain, USA, [place], pneumonia, PE, COPD, DKA, ARF, appy, cholecystitis, CVA, Diverticulitis, Homicidal, Suicidal, threat to staff... and all critical care pts) @ -No - Lab Data Result diagrams: 03/01/24 12:00 03/01/24 12:00 Lab Results 03/01/24 03/01/24 03/01/24 Range/Units 12:00 12:00 12:00 WBC 4.7 (3.8-10.6) k/uL RBC 4.27 (3.80-5.40) m/uL Hgb 13.0 (11.4-16.0) gm/dL Hct 40.0 (34.0-46.0) % MCV 93.7 (80.0-100.0) fL MCH 30.3 (25.0-35.0) pg MCHC 32.4 (31.0-37.0) g/dL RDW 13.6 (11.5-15.5) % Plt Count 158 (150-450) k/uL MPV 7.7 Neutrophils % 68 % Lymphocytes % 21 % Monocytes % 6 % Eosinophils % 3 % Basophils % 0 % Neutrophils # 3.2 (1.3-7.7) k/uL Lymphocytes # 1.0 (1.0-4.8) k/uL Monocytes # 0.3 (0-1.0) k/uL Eosinophils # 0.1 (0-0.7) k/uL Basophils # 0.0 (0-0.2) k/uL PT 10.8 (10.0-12.5) sec INR 1.0 (<1.2) APTT 21.0 L (22.0-30.0) sec Sodium 140 (137-145) mmol/L Potassium 3.7 (3.5-5.1) mmol/L Chloride 104 (98-107) mmol/L Carbon Dioxide 28 (22-30) mmol/L Anion Gap 8 mmol/L BUN 18 H (7-17) mg/dL Creatinine 0.90 (0.52-1.04) mg/dL Est GFR (CKD-EPI)AfAm 67 (>60 ml/min/1.73 sqM) Est GFR (CKD-EPI)NonAf 58 (>60 ml/min/1.73 sqM) Glucose 124 H (74-99) mg/dL Calcium 10.0 (8.4-10.2) mg/dL Magnesium 1.7 (1.6-2.3) mg/dL Total Bilirubin 0.9 (0.2-1.3) mg/dL AST 24 (14-36) U/L ALT 20 (4-34) U/L Alkaline Phosphatase 86 (38-126) U/L Troponin I (0.000-0.034) ng/mL Total Protein 7.0 (6.3-8.2) g/dL Albumin 4.3 (3.5-5.0) g/dL 03/01/24 Range/Units 12:00 WBC (3.8-10.6) k/uL RBC (3.80-5.40) m/uL Hgb (11.4-16.0) gm/dL Hct (34.0-46.0) % MCV (80.0-100.0) fL MCH (25.0-35.0) pg MCHC (31.0-37.0) g/dL RDW (11.5-15.5) % Plt Count (150-450) k/uL MPV Neutrophils % % Lymphocytes % % Monocytes % % Eosinophils % % Basophils % % Neutrophils # (1.3-7.7) k/uL Lymphocytes # (1.0-4.8) k/uL Monocytes # (0-1.0) k/uL Eosinophils # (0-0.7) k/uL Basophils # (0-0.2) k/uL PT (10.0-12.5) sec INR (<1.2) APTT (22.0-30.0) sec Sodium (137-145) mmol/L Potassium (3.5-5.1) mmol/L Chloride (98-107) mmol/L Carbon Dioxide (22-30) mmol/L Anion Gap mmol/L BUN (7-17) mg/dL Creatinine (0.52-1.04) mg/dL Est GFR (CKD-EPI)AfAm (>60 ml/min/1.73 sqM) Est GFR (CKD-EPI)NonAf (>60 ml/min/1.73 sqM) Glucose (74-99) mg/dL Calcium (8.4-10.2) mg/dL Magnesium (1.6-2.3) mg/dL Total Bilirubin (0.2-1.3) mg/dL AST (14-36) U/L ALT (4-34) U/L Alkaline Phosphatase (38-126) U/L Troponin I <0.012 (0.000-0.034) ng/mL Total Protein (6.3-8.2) g/dL Albumin (3.5-5.0) g/dL Disposition Clinical Impression: Near syncope Disposition: HOME SELF-CARE Condition: Good Instructions (If sedation given, give patient instructions): Near Syncope (ED) Is patient prescribed a controlled substance at d/c from ED?: No Referrals: Vidhi Almaraz PAC [REFERRING] - 1-2 days Time of Disposition: 14:11
[2024-03-01 12:15] LABS: Basophils % (A) 0 %; Eosinophils # (A) 0.1 k/uL (0-0.7); Eosinophils % (A) 3 %; Lymphocytes % (A) 21 %; MCH 30.3 pg (25.0-35.0); MCHC 32.4 g/dL (31.0-37.0); MCV 93.7 fL (80.0-100.0); Mean Platelet Volume 7.7; Monocytes # (A) 0.3 k/uL (0-1.0); Monocytes % (A) 6 %; Neutrophils # (A) 3.2 k/uL (1.3-7.7); Neutrophils % (A) 68 %; Platelet Count 158 k/uL (150-450); RBC 4.27 m/uL (3.80-5.40); RDW 13.6 % (11.5-15.5); WBC 4.7 k/uL (3.8-10.6)
[2024-03-01 12:27] LABS: ALT 20 U/L (4-34); AST 24 U/L (14-36); African American GFR (CKD) 67 (>60 ml/min/1.73 sqM); Albumin 4.3 g/dL (3.5-5.0); Alkaline Phosphatase 86 U/L (38-126); Anion Gap 8 mmol/L; Blood Urea Nitrogen 18 mg/dL (7-17); Carbon Dioxide 28 mmol/L (22-30); Chloride 104 mmol/L (98-107); Glucose 124 mg/dL (74-99); Magnesium 1.7 mg/dL (1.6-2.3); Non-African American GFR(CKD) 58 (>60 ml/min/1.73 sqM); Potassium 3.7 mmol/L (3.5-5.1); Sodium 140 mmol/L (137-145); Total Bilirubin 0.9 mg/dL (0.2-1.3)
--- NOTE | 2024-03-01 12:36 | XR ---
EXAMINATION TYPE: XR chest 2V DATE OF EXAM: 03/01/2024 12:19 PM COMPARISON: Chest radiographs from 2 02/11/2023 CLINICAL INDICATION: Female, 88 years old with history of Chest Pain; [facility] TECHNIQUE: XR chest 2V Frontal and lateral views of the chest. FINDINGS: Lungs/Pleura: There is no evidence of pleural effusion, focal consolidation, or pneumothorax. Pulmonary vascularity: Unremarkable. Heart/mediastinum: Cardiomediastinal silhouette is unremarkable. Musculoskeletal: No acute osseous pathology. IMPRESSION: No acute cardiopulmonary disease/process. [facility], , 03/01/2024 12:34 PM
[2024-03-01 12:40] LABS: Prothrombin Time 10.8 sec (10.0-12.5)
[2024-03-01 13:56] VITALS: RESP 18
[2024-03-01 14:33] VITALS: BP 183/78; PULSE 81; TEMP 98.1
== END 2024-03-01 15:06 | disposition home or self-care (01) ==
LOC: EC 11:32
DX: R55 Syncope and collapse (principal); Z91.09 Other allergy status, other than to drugs and biological substances; Z88.5 Allergy status to narcotic agent; Z88.8 Allergy status to other drugs, medicaments and biological substances
CPT/HCPCS: 36415; 71046; 80053; 83735; 84484; 85025; 85610; 85730; 93005; 99284

== ENCOUNTER → 2024-04-15 | Outpatient (CLI) | payer MEDICARE ==
--- NOTE | 2024-04-15 16:36 | MR ---
EXAMINATION TYPE: MR brain wo con DATE OF EXAM: 04/15/2024 4:23 PM COMPARISON: 02/11/2023 CLINICAL INDICATION: Female, 88 years old with history of R25.9 UNSPECIFIED ABNORMAL INVOLUNTARY MOVE MENTS, Falling, Hx of Lymphoma TECHNIQUE: Multiplanar, multiecho imaging on a 3.0 Lashonda magnet is performed through the brain. Stud y is performed within 24 hours of arrival to the hospital.Multiplanar, multiecho imaging on a 3.0 Amanda la magnet is performed through the knee. IV Contrast: mL (None, if empty) FINDINGS: The craniovertebral junction is normal. The pituitary is normal. Diffusion-weighted imaging is performed. No abnormal hyperintensity is present to suggest an acute i ntracranial infarct or acute ischemic change. No suspicious masses are identified. There are multiple patchy to confluent areas of hyperintensity on T2 and Inversion Recovery weighted sequences which are non-specific but can be related to microvascular ischemic changes. Ventricles and sulci are prominent for the patient age. There is an air-fluid level within the left maxillary sinus. Correlate for acute left maxillary sinus itis. Some mild mucosal thickening within the anterior ethmoid air cells bilaterally. IMPRESSION: 1. Chronic appearing patchy to confluent periventricular white matter ischemic type changes with atro phy. [facility], Workstation: [facility], 04/15/2024 4:34 PM
== END | disposition home or self-care (01) ==
LOC: RADMRIMAIN 15:32
PROVIDERS: ATTEND Family Medicine
DX: R25.9 Unspecified abnormal involuntary movements (principal); R90.82 White matter disease, unspecified; I67.82 Cerebral ischemia; G31.9 Degenerative disease of nervous system, unspecified
CPT/HCPCS: 70551

== ENCOUNTER → 2024-07-03 | Outpatient (CLI) | payer MEDICARE ==
--- NOTE | 2024-07-03 15:36 | US ---
EXAMINATION TYPE: US venous doppler duplex LE LT DATE OF EXAM: 07/03/2024 2:43 PM COMPARISON: NONE CLINICAL INDICATION: Female, 88 years old with history of M79.89 OTHER SPECIFIED SOFT TISSUE DISORDER S; left leg edema., Pain TECHNIQUE: The lower extremity deep venous system is examined utilizing real time linear array sonog tejas with graded compression, color doppler sonography, and spectral doppler. SIDE PERFORMED: Left FINDINGS: VESSELS IMAGED: Common Femoral Vein Deep Femoral Vein Greater Saphenous Vein * Femoral Vein Popliteal Vein Small Saphenous Vein * Proximal Calf Veins (* superficial vessels) Left Leg: Negative for DVT, Color Doppler imaging shows patency of the vessels. Spectral waveforms a re within normal limits. IMPRESSION: Left lower extremity ultrasound negative for deep venous thrombosis [facility], , 07/03/2024 3:34 PM
== END | disposition home or self-care (01) ==
LOC: RADUSWWP 14:11
PROVIDERS: ATTEND Family Medicine
DX: M79.89 Other specified soft tissue disorders (principal)

== ENCOUNTER → 2024-07-09 | Outpatient (CLI) | payer MEDICARE ==
--- NOTE | 2024-07-09 13:13 | CT ---
EXAMINATION TYPE: CT abdomen pelvis wo con DATE OF EXAM: 07/09/2024 COMPARISON: None CLINICAL INDICATION: Female, 88 years old with history of M79.89 SOFT TISSUE DISORDERS; PHH, left leg swelling TECHNIQUE: CT scan of the abdomen and pelvis is performed without oral or IV contrast. CT DLP: [address] CTDI: mGy Automated exposure control for dose reduction was used. FINDINGS: Within the limitations of a non-contrast study, the following observations are made. The lungs are clear. Gallbladder is normal and there is no gallstone, wall thickening, pericholecystic fluid or distention . There is no biliary ductal dilatation. There is no organomegaly of the liver, pancreas, spleen or adrenal glands. There is a 4 mm nonobstructing right renal calculus. There is a simple cortical cyst of the right kid giles and multiple parapelvic cysts of both kidneys. The caliber of the abdominal aorta is normal and there is no retroperitoneal adenopathy or hemorrhage . The bowel loops are normal in caliber is no evidence of obstruction. There are anastomotic sutures in the cecum and sigmoid colon No inflammatory changes are identified in the mesentery and there is no free intraperitoneal air or fluid. There is no pelvic mass, free fluid, abscess or adenopathy. There is surgical absence of the uterus. The osseous structures and soft tissues are unremarkable. IMPRESSION: 1. 4 mm nonobstructing right renal calcification. 2. Multiple parapelvic cysts both kidneys. No definite hydronephrosis. 3. Post surgical changes involving the cecum and sigmoid colon. 4. No acute changes within the abdomen or pelvis. [facility], , 07/09/2024 1:11 PM
== END | disposition home or self-care (01) ==
LOC: RADCTMAIN 12:31
PROVIDERS: ATTEND Family Medicine
DX: N28.1 Cyst of kidney, acquired (principal); N28.89 Other specified disorders of kidney and ureter; Z98.890 Other specified postprocedural states; M79.89 Other specified soft tissue disorders
CPT/HCPCS: 74176